=== PATIENT | female | born 1955 | race Caucasian/White ===

== ENCOUNTER 2022-06-24 16:50 | Emergency (ER) | payer MEDICARE, MEDICAID, SELFPAY ==
[2022-06-24 16:52] VITALS: BP 192/118; PULSE 90; RESP 18; TEMP 36.1; O2SAT 96; BMI 28.1
[2022-06-24 17:48] VITALS: BP 169/92; PULSE 87; RESP 16; O2SAT 97
--- NOTE | 2022-06-24 18:14 | EKG12_ITS ---
Test Reason : DYSRHYTHMIA Blood Pressure : / mmHG Vent. Rate : 083 BPM Atrial Rate : 083 BPM P-R Int : 124 ms QRS Dur : 084 ms QT Int : 380 ms P-R-T Axes : 032 063 038 degrees QTc Int : 446 ms Normal sinus rhythm Normal ECG Confirmed by LUCI COLMENARES, SHERMAN ([id number]), offline editor KETURAH THAKKAR ([id number]) on 06/27/2022 1:55:53 PM Referred By: HOLLY Confirmed By:SHERMAN VERMA MD
--- NOTE | 2022-06-24 18:32 | RAD_ITS ---
EXAM: XR CHEST, 1 VIEW CLINICAL INDICATION: cp TECHNIQUE: Frontal view of the chest. This report was created using [employer] report generation technology. COMPARISON: None. FINDINGS: LUNGS AND PLEURAL SPACES: Unremarkable. No consolidation or edema. No pneumothorax. No effusion. HEART: Unremarkable. Cardiac silhouette not enlarged. MEDIASTINUM: Central airways and mediastinal contour are unremarkable. BONES/JOINTS: Unremarkable. SOFT TISSUES: Unremarkable. RAD/Chest 1 View (Portable) IMPRESSION: No radiographic evidence of acute cardiopulmonary disease. Electronically Signed: Umberto Collier MD at 19:10 [facility] ,
[2022-06-24 18:40] LABS: Bacteria 0 SEEN /hpf (None Seen); Mucous, Urine 0 SEEN /hpf (<or=2+); Red Blood Cells-Urine 0 SEEN /hpf (0-5); Squamous Epithelial Cells - UA 0 SEEN /hpf (5-10); White Blood Cells 0 SEEN /hpf (0-5)
[2022-06-24 18:43] LABS: Absolute Lymphocyte Count 2.44 X10^3/uL (0.83-4.51); Absolute Neutrophil Count 8.7 X10^3/uL (2.0-7.7); Basophil# 0.07 X10^3/uL; Basophil% 0.6 % (0-1); Eosinophil# 0.12 X10^3/uL; Hematocrit 42.6 % (37-47); Hemoglobin 13.3 g/dL (12.0-15.0); Lymphocyte # 2.44 X10^3/ul (0.83-4.51); Lymphocyte % 20.3 % (19-41); Mean Corp Hgb Conc 31.2 g/dL (32-36); Mean Corpuscular Volume 86.6 fL (81-99); Mean Platelet Vol. 10.3 fl (6.2-12.0); Monocyte# 0.59 X10^3/uL; Monocyte% 4.9 % (0-10); NRBC Flagged by Analyzer 0 % (0-5); Neutrophil # 8.72 X10^3/uL (2.7-7.7); Neutrophil % 72.5 % (47-70); Platelet Count 580 K/mm3 (150-450); RBC Distribution Width CV 14.9 % (11.6-14.6); RBC Distribution Width SD 47.6 fl (35.1-43.9); Red Blood Count 4.92 M/mm3 (4.2-5.4)
[2022-06-24 18:55] LABS: Color, Urine Yellow (Yellow); Glucose, Dipstick Normal (Normal); Ketone-Dipstick Negative (Negative); Leukocyte Esterase-Dipstick Negative /ul (Negative); Nitrite-Dipstick Negative (Negative); Occult Blood-Urine Negative /ul (Negative); Protein-Dipstick Negative (Negative); Urine Bilirubin Dipstick Negative (Negative); Urine Clarity Clear (Clear); Urine Urobilinogen Normal (Normal)
[2022-06-24 18:59] LABS: Anion Gap 10 (5-15); BUN 5 mg/dL (7-18); BUN/Creat Ratio 5.1 RATIO (10-20); Calcium,Total 8.7 mg/dL (8.5-10.1); Chloride 103 mmol/L (98-107); Creatinine, Serum 0.99 mg/dL (0.55-1.02); EST Glomerular Filtration Rate 59 mL/min (>60); Est Glom Filt Rate - Afr Amer 72 mL/min (>60); Estimated Creatinine Clearance 56.05 ml/min; Glucose 117 mg/dL (74-106); Potassium 3.8 mmol/L (3.5-5.1); Sodium Level 139 mmol/L (136-145)
[2022-06-24 19:03] VITALS: BP 177/102; PULSE 78
[2022-06-24 19:49] VITALS: BP 167/80
--- NOTE | 2022-06-24 21:03 | EDS_ITS ---
HPI History of Present Illness Chief Complaint: Hypertension Informant: patient Onset/Context/Timing Onset: Today Narrative Narrative: Patient presents secondary to hypertension. She states she had a sudden sensati on of feeling very hot today when she was in her daughter's house. Her daughter checked her blood pressure it was noted to be 203/100. Patient is unsure when her last blood pressure reading would have been. She has not seen a physician in the last 4 years. She denies headache, chest pain, shortness of breath. PFSH PFSH no medical history Home Medications diphenhydramine HCl 25 mg capsule (Benadryl) 25 mg PO QHS PRN Sleep 06/24/22 [History Last Taken Unknown] metoprolol succinate 25 mg tablet,extended release 24 hr 25 mg PO DAILY #30 tabs 06/24/22 [Rx Last Taken Unknown] Allergy/AdvReac Type Severity Reaction Status Date / Time Penicillins [PCN] AdvReac Nausea Verified 06/24/22 16:52 Social History Smoking Status: Never smoker ROS ROS ED Constitutional Constitutional ED: Denies chills or fever(s) Eyes Eyes: Denies change in vision or discharge from eye(s) ENT ENT ED: Denies discharge from eye(s), rhinorrhea or sore throat Cardiovascular Cardiovascular: Denies chest pain or palpitations Respiratory/Chest Respiratory/Chest: Denies cough or dyspnea Gastrointestinal Gastrointestinal: Denies abdominal pain, nausea or vomiting Genitourinary Genitourinary ED: Denies difficulty urinating or dysuria Musculoskeletal Musculoskeletal: Denies back pain or extremity pain Integumentary Denies Abrasions or rash Neurologic Neurologic: Denies headache(s) or weakness Psychiatric Psychiatric: Denies anxiety or depression Allergic/Immunologic Allergic/Immunologic ED: Denies lip swelling or urticaria EXAM Physical Exam Const Vital Signs: 06/24/22 16:52 06/24/22 17:48 06/24/22 19:03 Temperature 97 F L Temperature Source Temporal Pulse Rate 90 87 78 Respiratory Rate 18 16 Blood Pressure 192/118 H 169/92 H 177/102 H Blood Pressure Mean 142 117 127 Pulse Ox 96 97 Oxygen Delivery Method Room Air Room Air 06/24/22 19:49 06/24/22 21:37 Temperature Temperature Source Pulse Rate 71 Respiratory Rate 16 Blood Pressure 167/80 H 164/76 H Blood Pressure Mean 109 Pulse Ox 100 Oxygen Delivery Method Positive well nourished and well developed General Appearance ED: well developed HEENT Reports normocephalic and head/scalp atraumatic Eyes PERRL and EOMs intact bilaterally Neck supple Chest Wall inspection of chest normal and palpation of chest normal Resp normal respiratory effort and clear to auscultation bilaterally Cardio regular rate and regular rhythm GI normal to inspection, nondistended, normoactive bowel sounds Palpation: soft Back/Spine no CVA tenderness Extremity normal to inspection Neuro oriented x3 and no sensory deficits noted Sensorium / Orientation: alert Motor Exam: strength 5/5 throughout Psych mental status grossly normal Skin no rashes or lesions noted MDM MDM MDM Narrative Medical decision making narrative: Patient placed on security monitor. EKG obtained to evaluate for signs of hypertensive heart disease. CBC and chemistry studies obtained to evaluate for anemia, electrolyte derangement. Urinalysis obtained to evaluate for any proteinuria. Lab Data Attestation: I reviewed the patient's lab results. Labs: Laboratory Results - last 24 hr 06/24/22 06/24/22 06/24/22 18:36 18:36 18:36 WBC 12.0 H RBC 4.92 Hgb 13.3 Hct 42.6 MCV 86.6 MCH 27.0 MCHC 31.2 L RDW Std Deviation 47.6 H RDW Coeff of Terell 14.9 H Plt Count 580 H MPV 10.3 Immature Gran % (Auto) 0.700 Neut % (Auto) 72.5 H Lymph % (Auto) 20.3 [place] % (Auto) 4.9 Eos % (Auto) 1.0 Baso % (Auto) 0.6 Absolute Neuts (auto) 8.7 H Absolute Lymphs (auto) 2.44 Nucleated RBC % 0 Sodium 139 Potassium 3.8 Chloride 103 Carbon Dioxide 26.0 Anion Gap 10 BUN 5 L Creatinine 0.99 Estim Creat Clear Calc 56.05 Est GFR (MDRD) Af Amer 72 Est GFR (MDRD) Non-Af 59 L BUN/Creatinine Ratio 5.1 L Glucose 117 H Calcium 8.7 Urine Color Yellow Urine Clarity Clear Urine pH 7.0 Ur Specific [place] 1.010 Urine Protein Negative Urine Glucose (UA) Normal Urine Ketones Negative Urine Occult Blood Negative Urine Nitrite Negative Urine Bilirubin Negative Urine Urobilinogen Normal Ur Leukocyte Esterase Negative Urine RBC 0 SEEN Urine WBC 0 SEEN Ur Squamous Epith Cells 0 SEEN Urine Bacteria 0 SEEN Urine Mucus 0 SEEN Radiography Chest X-Ray - ED: 1 View, Read by ED Physician, Normal, Heart, Lungs and Medi astinum Diagnostic Testing: Clinical Impression(s) from Imaging Studies Chest X-Ray 06/24/22 18:32 IMPRESSION: No radiographic evidence of acute cardiopulmonary disease. Electronically Signed: Umberto Collier MD at 19:10 EST , EKG Initial EKG: Attestation: I personally reviewed and interpreted this EKG as follows: Interpretation: Sinus Rhythm (Sinus 83 with no acute ischemia.) Treatment and Re-Evaluation Narrative: Patient was not given anything for blood pressure initially. With observation her blood pressure has settled in the 160s and 170s systolic. CBC and chemistry studies significantly for a white count of 12 and platelet count of 580. Renal function is normal. Urinalysis is normal with no sign of proteinuria. Chest x-ray per my interpretation is unremarkable with no significant evidence of cardiomegaly. EKG reveals no acute ischemia. With patient's blood pressure still in the 160s to 170s I will start her on low- dose metoprolol. She recently got a new insurance card and picked Greta Castanon as her provider. I recommended she call her for an appointment as soon as possible. I did recommend she keep a journal of her blood pressure readings. Return instructions are given. Discharge Plan Triage Chief Complaint: Hypertension ED Provider: Mahsa Moss Dx/Rx/DC Orders Clinical Impression: Hypertension Instructions: ED Hypertension New Begin Treatment Prescriptions: New metoprolol succinate 25 mg tablet extended release 24 hr 25 mg PO DAILY Qty: 30 0RF No Action diphenhydramine HCl [Benadryl] 25 mg Capsule 25 mg PO QHS PRN (Reason: Sleep) Primary Care Provider: Care Physician,No Primary Referrals: Care Physician,No Primary [Primary Care Provider] - Activity Restrictions/Additional Instructions: Follow-up with Greta Castanon NP. Please keep a journal of your blood pressure readings. Disposition Disposition: Home, Self Care Discharge Date/Time: 06/24/22 21:37
[2022-06-24] MEDS: Metoprolol(XL)Succ 25 MG Tablet PO (21:33)
[2022-06-24 21:37] VITALS: BP 164/76; PULSE 71; RESP 16; O2SAT 100
== END 2022-06-24 21:37 | disposition home or self-care (01) ==
PROVIDERS: Emergency Provider Emergency Medicine; Visit Provider Emergency Medicine
DX: I10 Essential (primary) hypertension (principal)
CPT/HCPCS: 71045; 80048; 81001; 85025; 93005; 99285; A4216

== ENCOUNTER → 2022-07-08 | Outpatient (CLI) | payer MEDICARE, MEDICAID, SELFPAY ==
[2022-07-08 13:00] LABS: Absolute Lymphocyte Count 2.65 X10^3/uL (0.83-4.51); Absolute Neutrophil Count 3.7 X10^3/uL (2.0-7.7); Basophil# 0.04 X10^3/uL; Basophil% 0.6 % (0-1); Eosinophil# 0.12 X10^3/uL; Eosinophils% 1.7 % (0-5); Hematocrit 42.1 % (37-47); Hemoglobin 12.9 g/dL (12.0-15.0); Lymphocyte # 2.65 X10^3/ul (0.83-4.51); Lymphocyte % 37.3 % (19-41); Mean Corp Hgb Conc 30.6 g/dL (32-36); Mean Corpuscular Hgb 26.5 pg (27.0-32.0); Mean Corpuscular Volume 86.6 fL (81-99); Mean Platelet Vol. 12.2 fl (6.2-12.0); Monocyte# 0.57 X10^3/uL; NRBC Flagged by Analyzer 0 % (0-5); Neutrophil % 52.1 % (47-70); Platelet Count 543 K/mm3 (150-450); RBC Distribution Width CV 14.8 % (11.6-14.6); RBC Distribution Width SD 47.4 fl (35.1-43.9); Red Blood Count 4.86 M/mm3 (4.2-5.4); White Blood Count 7.1 K/mm3 (4.4-11.0)
[2022-07-08 13:38] LABS: Alanine Aminotransfer ALT/SGPT 25 U/L (13-56); Anion Gap 9 (5-15); BUN 8 mg/dL (7-18); BUN/Creat Ratio 10.4 RATIO (10-20); Calcium,Total 9.1 mg/dL (8.5-10.1); Chloride 101 mmol/L (98-107); Creatinine, Serum 0.77 mg/dL (0.55-1.02); EST Glomerular Filtration Rate 79 mL/min (>60); Est Glom Filt Rate - Afr Amer 96 mL/min (>60); Glucose 102 mg/dL (74-106); Potassium 3.9 mmol/L (3.5-5.1); Sodium Level 139 mmol/L (136-145); Thyroid Stim Hormone (TSH) 1.55 uIU/mL (0.358-3.74)
== END | disposition home or self-care (01) ==
LOC: LAB 11:32
DX: I10 Essential (primary) hypertension (principal); R63.5 Abnormal weight gain
CPT/HCPCS: 36415; 80048; 84443; 84460; 85025

== ENCOUNTER → 2022-11-18 | Outpatient (CLI) | payer MEDICARE, MEDICAID, SELFPAY ==
[2022-11-18 10:15] LABS: Absolute Lymphocyte Count 2.32 X10^3/uL (0.83-4.51); Absolute Neutrophil Count 3.8 X10^3/uL (2.0-7.7); Basophil# 0.06 X10^3/uL; Basophil% 0.9 % (0-1); Eosinophil# 0.12 X10^3/uL; Eosinophils% 1.7 % (0-5); Hematocrit 41.4 % (37-47); Hemoglobin 12.9 g/dL (12.0-15.0); Lymphocyte # 2.32 X10^3/ul (0.83-4.51); Lymphocyte % 33.4 % (19-41); Mean Corp Hgb Conc 31.2 g/dL (32-36); Mean Corpuscular Hgb 26.7 pg (27.0-32.0); Mean Corpuscular Volume 85.7 fL (81-99); Mean Platelet Vol. 9.8 fl (6.2-12.0); Monocyte% 8.6 % (0-10); NRBC Flagged by Analyzer 0 % (0-5); Neutrophil # 3.81 X10^3/uL (2.7-7.7); Neutrophil % 54.8 % (47-70); Platelet Count 537 K/mm3 (150-450); RBC Distribution Width CV 14.5 % (11.6-14.6); Red Blood Count 4.83 M/mm3 (4.2-5.4)
[2022-11-18 10:48] LABS: Anion Gap 5 (5-15); BUN 7 mg/dL (7-18); BUN/Creat Ratio 7.9 RATIO (10-20); Calcium,Total 8.8 mg/dL (8.5-10.1); Chloride 103 mmol/L (98-107); Cholesterol 264 mg/dL (200); Creatinine, Serum 0.89 mg/dL (0.55-1.02); EST Glomerular Filtration Rate 67 mL/min (>60); Est Glom Filt Rate - Afr Amer 81 mL/min (>60); Glucose 108 mg/dL (74-106); High Density Lipoprotein 52 mg/dL; Potassium 4.1 mmol/L (3.5-5.1); Sodium Level 137 mmol/L (136-145); Triglycerides 199 mg/dL; Very Low Density Lipoprotein 40 mg/dL (5-40)
== END | disposition home or self-care (01) ==
LOC: LAB 09:40
DX: I10 Essential (primary) hypertension (principal)
CPT/HCPCS: 36415; 80048; 80061; 85025

== ENCOUNTER → 2023-06-16 | Outpatient (CLI) | payer MEDICARE, MEDICAID, SELFPAY ==
--- NOTE | 2023-06-16 13:47 | BI_ITS ---
MAMMOGRAPHY - BILATERAL SCREENING REASON FOR EXAM: Female, 68 years old. Routine annual screening examination. PERTINENT HISTORY: Aunt with breast cancer. TECHNIQUE: Digital bilateral breast pamela (3D mammographic acquisition) in the CC and MLO projections. 2-D mediolateral oblique (MLO) and craniocaudad (CC) views of both breasts were obtained. CAD: Full Field Digital Mammography with Computer Added Detection was performed. COMPARISON: No comparison mammograms available at this time. If any prior films become available, an addendum to this report can be generated. FINDINGS: Breast Composition: There are scattered areas of fibroglandular density. There are 3 adjacent well-defined subcentimeter nodular densities in the deep central lateral aspect of the right breast. Correlation with ultrasound is recommended. Fat-containing bilateral axillary lymph nodes. No other significant abnormalities are identified. BI/SCRN MAMM (CAD)W/PAMELA BILAT IMPRESSION: 3 adjacent well-defined subcentimeter nodular densities in the deep central lateral aspect of the right breast. Correlation with ultrasound is recommended for further evaluation. ASSESSMENT CATEGORY: BIRADS Category 0: Incomplete. Need additional imaging evaluation. A letter regarding these results will be sent to the patient by the facility within 30 days. Approximately 10% of breast cancers are not detected by mammography. A normal mammogram should not delay biopsy of a clinically suspicious abnormality. [id number] Electronically Signed: Franco Corcoran MD at 14:36 EST ,
== END | disposition home or self-care (01) ==
LOC: OPBI 13:44
PROVIDERS: Referring Provider Nurse Practitioner Family; Visit Provider Nurse Practitioner Family
DX: Z12.31 Encounter for screening mammogram for malignant neoplasm of breast (principal)
CPT/HCPCS: 77063; 77067

== ENCOUNTER → 2023-06-27 | Outpatient (CLI) | payer MEDICARE, MEDICAID, SELFPAY ==
--- NOTE | 2023-06-27 10:49 | US_ITS ---
STUDY: ULTRASOUND BREAST - RIGHT REASON FOR EXAM: Female, 68 years old. Abnormal screening mammogram. TECHNIQUE: Axial and longitudinal images of the RIGHT breast were performed with a high resolution ultrasound transducer. # OF IMAGES: 21 COMPARISON: Comparison is made with prior mammogram dated June 16, 2023. FINDINGS: RIGHT Breast: At the 8:00 position of the breast at 7 cm and 9 cm from the nipple, there are 2 adjacent 4 mm x 5 mm x 4 mm and 6 mm x 5 mm x 3 mm hypoechoic irregular nodular densities with increased vascularity. Biopsy is recommended. There is also evidence of a 5 mm x 5 mm x 4 mm hypoechoic solid nodule with smooth borders at the 8:00 position of the breast at 7 cm from the nipple. US/Breast Limited Unilateral IMPRESSION: There are 3 adjacent hypoechoic solid nodules in the 8 o''clock position of the breast at 7, 89, cm from nipple as described. Biopsy recommended of the spiculated nodules at the 8:00 position at 7 cm from nipple and 8:00 position at 9 cm from nipple. ASSESSMENT CATEGORY: BIRADS Category 4: Suspicious - Biopsy Should Be Considered. A letter regarding these results will be sent to the patient by the facility within 30 days. Electronically Signed: Franco Corcoran MD at 14:46 EST ,
== END | disposition home or self-care (01) ==
LOC: OPUS 10:48
PROVIDERS: Referring Provider Nurse Practitioner Family; Visit Provider Nurse Practitioner Family
DX: N63.13 Unspecified lump in the right breast, lower outer quadrant (principal)
CPT/HCPCS: 76642

== ENCOUNTER → 2023-11-24 | Outpatient (CLI) | payer MEDICARE, MEDICAID, SELFPAY ==
[2023-11-24 08:36] LABS: Absolute Lymphocyte Count 2.67 X10^3/uL (0.83-4.51); Absolute Neutrophil Count 5.2 X10^3/uL (2.0-7.7); Basophil# 0.06 X10^3/uL; Basophil% 0.7 % (0-1); Eosinophils% 1.1 % (0-5); Hematocrit 39.5 % (37-47); Hemoglobin 12.3 g/dL (12.0-15.0); Lymphocyte # 2.67 X10^3/ul (0.83-4.51); Lymphocyte % 30.2 % (19-41); Mean Corp Hgb Conc 31.1 g/dL (32-36); Mean Corpuscular Hgb 26.2 pg (27.0-32.0); Mean Corpuscular Volume 84.2 fL (81-99); Mean Platelet Vol. 9.9 fl (6.2-12.0); Monocyte# 0.75 X10^3/uL; Monocyte% 8.5 % (0-10); NRBC Flagged by Analyzer 0 % (0-5); Neutrophil # 5.21 X10^3/uL (2.7-7.7); Neutrophil % 58.9 % (47-70); Platelet Count 557 K/mm3 (150-450); RBC Distribution Width CV 14.6 % (11.6-14.6); RBC Distribution Width SD 44.5 fl (35.1-43.9); Red Blood Count 4.69 M/mm3 (4.2-5.4); White Blood Count 8.8 K/mm3 (4.4-11.0)
[2023-11-24 08:59] LABS: ALB/GLOB Ratio 0.9 RATIO (0.9-2.4); AST(SGOT) 22 U/L (15-37); Alanine Aminotransfer ALT/SGPT 31 U/L (13-56); Albumin, Serum 3.7 g/dL (3.2-5.0); Alkaline Phosphatase 131 U/L (45-117); Anion Gap 6 (5-15); BUN 7 mg/dL (7-18); BUN/Creat Ratio 8.7 RATIO (10-20); Calcium,Total 8.3 mg/dL (8.5-10.1); Chloride 102 mmol/L (98-107); Cholesterol 286 mg/dL (200); Creatinine, Serum 0.81 mg/dL (0.55-1.02); EST Glomerular Filtration Rate 75 mL/min (>60); Est Glom Filt Rate - Afr Amer 90 mL/min (>60); Glucose 125 mg/dL (74-106); High Density Lipoprotein 64 mg/dL; Potassium 3.9 mmol/L (3.5-5.1); Protein, Total 7.7 g/dL (6.4-8.2); Sodium Level 138 mmol/L (136-145); Thyroid Stim Hormone (TSH) 3.38 uIU/mL (0.358-3.74); Triglycerides 180 mg/dL; Very Low Density Lipoprotein 36 mg/dL (5-40)
== END | disposition home or self-care (01) ==
LOC: LAB 08:15
PROVIDERS: Referring Provider Nurse Practitioner Family; Visit Provider Nurse Practitioner Family
DX: I10 Essential (primary) hypertension (principal); E78.5 Hyperlipidemia, unspecified; E56.9 Vitamin deficiency, unspecified
CPT/HCPCS: 36415; 80053; 80061; 84443; 85025

== ENCOUNTER → 2024-01-10 | Outpatient (CLI) | payer MEDICARE, MEDICAID, SELFPAY ==
--- NOTE | 2024-01-10 11:43 | US_ITS ---
STUDY: THYROID ULTRASOUND REASON FOR EXAM: Female, 68 years old. Nontoxic single thyroid nodule TECHNIQUE: Ultrasound evaluation of the thyroid was performed with real-time and static horvath-scale imaging. COMPARISON: None. FINDINGS: RIGHT LOBE: The right lobe of the thyroid gland measures 4.1 cm x 2.5 cm x 3 cm. There is a heterogeneous echotexture. There is a 3.5 cm x 2.9 cm x 2.9 cm heterogeneous nodule with vascularity. Biopsy recommended. LEFT LOBE: The left lobe of the thyroid gland measures 4.8 cm x 3 cm x 3.4 cm. There is a homogeneous echotexture. There is a 3.1 sided by 2.9 cm x 2.8 cm hypoechoic solid nodule in the midpole. Increased vascularity is seen. A similar appearing 1.5 cm x 1.4 cm x 1.2 cm complex nodule seen in the lower pole with increased vascularity. Biopsy recommended. ISTHMUS: The isthmus measures 1.7 mm. The regional lymph nodes are normal. US/Thyroid IMPRESSION: Complex masses in both lobes of the thyroid gland as described. Biopsy is recommended. Electronically Signed: Franco Corcoran MD at 9:04 EDT ,
== END | disposition home or self-care (01) ==
LOC: US 11:43
PROVIDERS: PCP Internal Medicine; Referring Provider Internal Medicine; Visit Provider Internal Medicine
DX: E04.1 Nontoxic single thyroid nodule (principal)
CPT/HCPCS: 76536

== ENCOUNTER → 2024-01-12 | Outpatient (CLI) | payer MEDICARE, MEDICAID, SELFPAY ==
--- NOTE | 2024-01-12 | IMM_PTH ---
PATIENT: DAYSI YOUNG LOC: [facility]#:[id number] AGE/SX: 68/F ROOM: RE01/12/[address]: Nati Mendoza PA-C : 1955 BED: DIS: 01/12/2024 SPEC #: [id number] RECD: 01/15/24 11:54 STATUS: MARIANNE REQ #: [id number] MARY: 01/12/24 00:[address]: Nati Mendoza DEPT: IMMUNOHISTOCHEMISTRY RECD BY: Drake Geller ENTERED: 01/15/24 11:56 SP TYPE: IMMUNO OTHR DR: Dr. Rashid Walsh MD Tissues: A - Right breast, NOS B - Right breast, NOS Procedures: CK8 (initial) SMA (add) Calponin-1(initial) CALPONIN-1 (add) P40 (add) P40 (initial) PHYSICIAN & INSTITUTION [place] [id number] SPECIMEN INFORMATION: Tissue Source: A- Right breast, B- Right breast Clinical Info: Right breast, multiple sites Specimen Number: [id number] A, B CPT code: 71703m5,69144t5 METHODOLOGY: Deparaffinized sections of prefer/formalin-fixed tissue or PAP/DQ stained slides are incubated with monoclonal/polyclonal antibodies/oligonucleotide probes. Localization is made via biotin free immunoperoxidase method. Appropriate controls are performed and reacted as expected. Results on target cell population are indicated in the following table: RESULTS: ANTIBODY / CLONE RESULT Block A Actin (1A4) positive P40 (BC28) positive Calponin-1 (RM476V) positive CK8 ([id number]) positive Block B Actin (1A4) positive P40 (BC28) positive Calponin-1 (EA099V) positive CK8 ([id number]) positive These tests were developed and their performance characteristics determined by [facility]. They may not have been cleared or approved by the U.S. Food and Drug Administration. The FDA has determined that such clearance or approval is not necessary. The above immunohistochemical/dualISH markers are ordered and reviewed by the Pathologist. INTERPRETATION: A. Right breast, ultrasound guided core biopsy: Consistent with intraductal papilloma. B. Right breast, ultrasound guided core biopsy: Consistent with intraductal papilloma. EMBER/ 01/16/2024
--- NOTE | 2024-01-12 | BRBX_PTH ---
PATIENT: DAYSI YOUNG LOC: [facility]#:[id number] AGE/SX: 68/F ROOM: RE01/12/[address]: Nati Mendoza PA-C : 1955 BED: DIS: 01/12/2024 SPEC #: [id number] RECD: 01/12/24 10:03 STATUS: MARIANNE GABI #: [id number] MARY: 01/12/24 00:[address]: Nati Mendoza DEPT: SURGICAL PATHOLOGY RECD BY: Kirill Gtz ENTERED: 01/12/24 10:04 SP TYPE: BREAST BX MARGARITA DR: Dr. Rashid Walsh MD Tissues: A - Right breast, NOS B - Right breast, NOS Procedures: Surgery Specimen Level IV HEADER OPERATION: Ultrasound guided breast biopsy, right PRE-OP DIAGNOSIS: Right breast, multiple sites TISSUE SUBMITTED: A- Right breast mass 8 o'clock, 9cm, B- Right breast mass 8 o'clock, 7cm ISCHEMIC TIME: Less than 1 minute FIXATION TIME: 58 hours MICROSCOPIC DIAGNOSIS A. Right breast mass at 8o'clock, core biopsy: Consistent with intraductal papilloma. Mild fibrocystic changes. Focal intraductal hyperplasia without atypia. See comment. B. Right breast at 8o'clock, core biopsy: Fragments of intraductal papilloma. Focal intraductal hyperplasia with focal mild atypia. Fibrocystic change. See comment. EMBER/ 01/15/2024 COMMENT A,B. Immunohistochemistry ([id number]) supports the above diagnosis. Case has been reviewed in consultation with Dr. Sotelo who concurs with the above diagnosis. IDC:SJ MICROSCOPIC DESCRIPTION Slides are reviewed. GROSS DESCRIPTION A. Received in fixative is one container labeled with the patient's name and designated Right breast #1. The specimen consists of multiple elongated fragments of cohn-yellow fibroadipose tissue that in aggregate measure 1.5 x 0.5 x 0.1 cm. The specimen is totally submitted in one cassette. B. Received in fixative is one container labeled with the patient's name and designated Right breast #2. The specimen consists of multiple irregular fragments of light-cohn soft tissue measuring in aggregate 2.0 x 0.6 x 0.3cm. The specimen is submitted in its entirety in one cassette/ SJ. 01/15/2024 TC:5 CPT:15917p2
--- NOTE | 2024-01-12 07:55 | US_ITS ---
ULTRASOUND GUIDED CORE BIOPSY REASON FOR EXAM: Female, 68 years old. Mass right breast PERTINENT HISTORY: Biopsy of right breast nodules. COMPARISON: None. TECHNIQUE: (All elements of maximal sterile barrier technique followed, including US elements as applicable) Upon arrival to the breast imaging department the patient''s identification was confirmed and the RIGHT breast was marked according to time-out protocol. Ultrasound guided core biopsy and clip placement, to include potential risks and complications, was explained in full to the patient. Written and verbal consent were obtained prior to initiation of the procedure. The RIGHT breast was prepped and draped in standard sterile fashion and local anesthesia was obtained with 1% buffered lidocaine. A small dermatotomy was then made to introduce the core biopsy needle. Under ultrasound guidance multiple core samples were obtained with a gauge needle and submitted in formalin for pathology. A titanium clip was then deployed into the biopsy cavity under ultrasound guidance. Upon completion of the procedure hemostasis was obtained and sterile dressing was applied. The patient tolerated the entire procedure without immediate complication and was discharged from the breast imaging department in good condition. IMPRESSION: Ultrasound guided core biopsy of a mass in the RIGHT breast at 8:00 position of the breast at 9 cm from the nipple without complication. Electronically Signed: Franco Corcoran MD at 12:26 EDT , ULTRASOUND GUIDED CORE BIOPSY REASON FOR EXAM: Female, 68 years old. Mass right breast PERTINENT HISTORY: Abnormal right breast nodules. COMPARISON: None. TECHNIQUE: (All elements of maximal sterile barrier technique followed, including US elements as applicable) Upon arrival to the breast imaging department the patient''s identification was confirmed and the RIGHT breast was marked according to time-out protocol. Ultrasound guided core biopsy and clip placement, to include potential risks and complications, was explained in full to the patient. Written and verbal consent were obtained prior to initiation of the procedure. The RIGHT breast was prepped and draped in standard sterile fashion and local anesthesia was obtained with 1% buffered lidocaine. A small dermatotomy was then made to introduce the core biopsy needle. Under ultrasound guidance multiple core samples were obtained with a 11 gauge needle and submitted in formalin for pathology. A titanium clip was then deployed into the biopsy cavity under ultrasound guidance. Upon completion of the procedure hemostasis was obtained and sterile dressing was applied. The patient tolerated the entire procedure without immediate complication and was discharged from the breast imaging department in good condition. US/US Breast Biopsy 1st Lesion IMPRESSION: Ultrasound guided core biopsy of a mass in the RIGHT breast at 8:00 position of the breast at 7 cm from the nipple without complication. Electronically Signed: Franco Corcoran MD at 12:26 EDT ,
--- NOTE | 2024-01-12 11:14 | OP.PCM_ITS ---
Report of Operation Date of Procedure: 01/12/24 Pre-Operative Diagnosis: Right breast mass x 2 Post-Operative Diagnosis: Same Surgery/Procedure Performed:: Ultrasound guided right breast biopsy x 2 Surgeon: Salima Rosado Type of Anesthesia: Local Specimen's removed: 1. Right breast mass 8:00 9 cm from nipple, 2. Right breast mass 8:00 7 cm from the nipple Estimated Blood Loss (mL): < 5 cc Description of Procedure: Reviewed the ultrasound and mammography with patient and discussed the need for biopsy. Reviewed the procedure of biopsy with a core biopsy device. A marker clip will be placed to identify the location. Patient has been counseled to the risks/benefits of the procedure. I have explained the risks of the surgery, including but not limited to: infection, bleeding, injury to any blood vessels/nerves, scar tissue, missing the lesion, further surgery, etc. - the patient understands and agrees to proceed. I have answered all of the patient's questions to her satisfaction and she has no further questions. Signed consent is completed. Procedure: Right ultrasound-guided core biopsy x 2 Indications: 68 year-old female with hypoechoic nodules at 8:00 in the right breast 7 (2 adjacent nodules) and 9 centimeters from the nipple. Risk benefits were discussed the patient and she elected to proceed with ultrasound guided core biopsy with clip placement Description of procedure: Patient was brought into the ultrasound room in the right breast was marked. A timeout was completed verifying correct patient, procedure, site, specially, prior to beginning procedure. The right breast was prepped and draped in usual sterile fashion and using local anesthesia was obtained with 1% lidocaine with epi. Both lesions were done similarly through the same initial incision. The lesion was located with the ultrasound. Small incision was made with 11 blade to introduced the mammotome through the skin. Under ultrasound guidance multiple core samples were obtained using then 13- gauge mammotome and sent in formalin for pathology. Both lesions were obtained at the 7:00 area and sent together. The Bard dual ultra-(ribbon clip at 9:00 and clip at 7:00) clip was then deployed into the biopsy cavity under ultrasound guidance and a picture was taken. Upon completion procedure hemostasis was obtained and a Steri-Strip and OpSite were placed. Patient was then taken to the mammography suite for clip verification. The clip was verified. The patient tolerated the procedure well and was discharged from the breast imaging department good condition. Complications none
== END | disposition home or self-care (01) ==
LOC: US 07:53
PROVIDERS: PCP Internal Medicine; Referring Provider Physician Assistant; Visit Provider Physician Assistant
DX: D24.1 Benign neoplasm of right breast (principal); N60.11 Diffuse cystic mastopathy of right breast; N62 Hypertrophy of breast; R92.8 Other abnormal and inconclusive findings on diagnostic imaging of breast
CPT/HCPCS: 19083; 19084; 88305; 88341; 88342

== ENCOUNTER 2024-02-28 11:50 | Day surgery (SDC) | payer MEDICARE, MEDICAID, SELFPAY ==
[2024-02-28] VITALS (10 sets, daily range): BP systolic 129–157; BP diastolic 67–81; PULSE 62–79; RESP 16–17; TEMP 36.3–36.8; O2SAT 93–100; BMI 26.8
--- NOTE | 2024-02-28 | IMM_PTH ---
PATHOLOGY RESULTS PATIENT: DAYSI YOUNG [place] [facility] [id number] AGE/SX: 68/F ROOM: RE02/28/[address]: Dr. Salima Rosado MD : [id number] BED: DIS: 02/28/2024 SPEC #: [id number] RECD: 03/04/24 11:49 STATUS: MARIANNE REQ #: [id number] MARY: 02/28/24 00:[address]: Salima Rosado DEPT: IMMUNOHISTOCHEMISTRY RECD BY: Drake Geller ENTERED: 03/04/24 11:51 SP TYPE: IMMUNO OTHR DR: Dr. Rashid Walsh MD Tissues: Right breast, NOS Procedures: CALPONIN-1 (add) CK8 (add) E-CAD (add) HER2 NANY (add) OH (add) P40 (add) ER (initial) PHYSICIAN & INSTITUTION [facility] [id number] SPECIMEN INFORMATION: Tissue Source: Right breast mass Clinical Info: Atypical ductal hyperplasia of right breast Specimen Number: [id number] CPT code: 30585,[id number] METHODOLOGY: Deparaffinized sections of prefer/formalin-fixed tissue or PAP/DQ stained slides are incubated with monoclonal/polyclonal antibodies/oligonucleotide probes. Localization is made via biotin free immunoperoxidase method. Appropriate controls are performed and reacted as expected. Results on target cell population are indicated in the following table: RESULTS: ANTIBODY / CLONE RESULT Block #6 E-Cad (ECH-6) positive CK8 ([id number]) positive Calponin-1 (CE797N) positive (myoepithelial cells) P40 (BC28) positive (myoepithelial cells) MORPHOMETRIC ANALYSIS ER (clone 6F11) positive (variable, 0 to 22%, moderate intensity) OH (clone 16/1E2) positive (variable, 0 to 17%, moderate intensity) Her-2Neu (clone CB11) positive (3+) The prognostic test for HER2 is performed on formalin-fixed paraffin embedded tissue. A 3+ (positive) staining pattern is defined as intense, homogeneous, complete, circumferential membranous staining in >10% of contiguous tumor cells. A similar weak (2+) staining pattern is interpreted as equivocal. ALDO follow-up testing is recommended for all equivocal cases. Positivity/negativity for ER/OH is reported if > or < 1% of the tumor cells are immuno- reactive, respectively. The ASCO/CAP criteria is used for scoring. Reference: Journal of Clinical Oncology, 2013; 31:4274-3582 & 2010; 16:8812-2716. Ischemic time: Less than one hour. Duration of fixation: 29 Hrs; Sample Adequate: Yes. These assays have not been validated on decalcified tissues. Results should be interpreted with caution given the likelihood of false negativity on decalcified specimens or fixation greater than 72 hours. Alternative testing methods (FISH/dualISH for Her2; gene expression for ER) are recommended, if applicable. Please notify the laboratory if additional testing is required. These tests were developed and their performance characteristics determined by [facility]. They may not have been cleared or approved by the U.[place]. Food and Drug Administration. The FDA has determined that such clearance or approval is not necessary. The above immunohistochemical/dualISH markers are ordered and reviewed by the Pathologist. INTERPRETATION: Right breast mass, excisional biopsy: Ductal carcinoma in situ. DEIDRA/ 03/05/2024
--- NOTE | 2024-02-28 12:24 | PCM.PRE.AN2 ---
ASA Classification* ASA Classification ASA Classification: 2 Assessment & Plan Anesthesia* Anesthesia Assessment Anesthesia Assessment: Discussed sedation and/or anesthesia options, risks, benefits, and alternatives with patient/parents/legal guardian/POA. Questions invited. The patient/parents/legal guardian/POA seems to understand and agrees to proceed with anesthesia plan. Reviewed the physical assessment, medical history, allergy history and patient home medications list prior to surgery/procedure/anesthetic and documented any changes. Performed airway and anesthesia risk assessments. Anesthesia Type Anesthesia Type: MAC History Source History Obtained from:: Patient and Chart Anesthesia Focused Assessment* Temperature: 98.1 F Pulse Rate: 79 Blood Pressure: 157/81 Respiratory Rate: 17 Pulse Ox: 100 Oxygen Delivery Method: Room Air Airway Assessment Mouth opens: >3 cm Mallampati Score: II Teeth Condition: Dentures (Upper and lower dentures. Lower dentures are out.) Neck Range of motion (ROM): Full ROM Pertinent Findings EKG Pertinent Findings:: June 24, 2022. Normal sinus rhythm. Focused Labs Anesthesia Preop lab: CBC WBC 8.8 K/mm3 (4.4-11.0) 11/24/23 08:16 RBC 4.69 M/mm3 (4.2-5.4) 11/24/23 08:16 Hgb 12.3 g/dL (12.0-15.0) 11/24/23 08:16 Hct 39.5 % (37-47) 11/24/23 08:16 Plt Count 557 K/mm3 (150-450) H 11/24/23 08:16 CHEMISTRY Potassium 3.9 mmol/L (3.5-5.1) 11/24/23 08:16 Sodium 138 mmol/L (136-145) 11/24/23 08:16 BUN 7 mg/dL (7-18) 11/24/23 08:16 Creatinine 0.81 mg/dL (0.55-1.02) 11/24/23 08:16 Glucose 125 mg/dL (74-106) H 11/24/23 08:16 TSH 3.38 uIU/mL (0.358-3.74) 11/24/23 08:16 COAG Pre-Assessment Diagnosis/Proposed Procedure Planned Operative Procedure(s): RIGHT STERO WIRE LOCALIZATION EXCISIONAL BREAST BIOPSY Anesthesia History 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 When Was Last Pacemaker Check QUESTION #4 FULL TEXT: You/Your Family Experience fever (hyperthermia) with Anesthesia Last Oral Intake Last Oral intake: Last Oral Intake NPO since 07:30 02/28/24 12:15 Meds taken in AM with sips of Yes 02/28/24 12:15 water? Meds patient instructed to AMLODIPINE 02/28/24 12:15 take am of surgery Any additional information?: Yes Meds taken in AM with sips of water?: Yes PONV PONV - resin coater: PONV - resin coater Female Yes 02/21/24 15:13 HX of Motion Sickness No 02/21/24 15:13 HX of N/V After Surgery No 02/21/24 15:13 Non-Smoker Yes 02/21/24 15:13 Duration of Surgery greater Yes 02/21/24 15:13 than 60 minutes Number of Risk Factors 3 02/21/24 15:13 PONV Score Moderate Risk 02/21/24 15:13 Height & Weight Height & Weight: Anesthesia: Height & Weight Height 5 ft 8 in 02/28/24 12:15 Weight: 80 kg 02/28/24 12:15 Body Mass Index (BMI) 26.8 02/28/24 12:15 Respiratory Assessment Respiratory Assessment - resin coater: Respiratory Tract Infection Hx - resin coater Hx Respiratory Tract Infection No 02/21/24 15:13 STOP Sleep Apnea STOP Sleep Apnea - resin coater: STOP Sleep Apnea - resin coater Hx Hypertension Yes: CONTROLLED WITH MEDS 02/21/24 15:13 Hx Sleep Apnea No 02/21/24 15:13 CPAP BIPAP Do you snore loudly (louder Yes 02/21/24 15:13 than talking or can be heard Do you often feel tired/ No 02/21/24 15:13 fatigued/ sleepy during daytime? Has anyone observed you stop No 02/21/24 15:13 breathing during sleep? STOP Results Positive 02/21/24 15:13 QUESTION #5 FULL TEXT : Do you snore loudly (louder than talking or can be heard through closed doors)? 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 Specify any problems Hx of Preganancy in last 3 No 02/21/24 15:13 Months Nurse Filling Out Transfusion DSCHRIBER 02/21/24 15:13 & Questions: Date: 02/21/24 02/21/24 15:13 Time: 15:14 02/21/24 15:13 Patient unable to answer at this time (ie. confused, unrespo /Reproduction History /Reproductive History - resin coater: /Reproductive Hx- resin coater Hx Now No 02/21/24 15:13 Gestational Age (in weeks): EDC: Hx Hx Para Hx Section SAB No 02/21/24 15:13 Active Medications Active Medications: Current Medications Generic Name Dose Route Start Last Admin Trade Name Freq PRN Reason Stop Dose Admin Clindamycin Phosphate 900 mg in 50 mls @ 75 mls/hr 02/28/24 13:30 Cleocin IV 02/28/24 14:09 PREOP ONE PFSH Medical History Wears glasses Wears dentures Post-menopausal Thyroid disease Arthritis History of renal disease Anemia Injury of back Non-smoker History of pain when walking Hypertension Cardiology follow-up encounter History of rheumatic fever History of basal cell carcinoma of skin Anxiety GERD (gastroesophageal reflux disease) Cardiac murmur Osteoarthritis Fibrocystic breast Home Medications ?Medication ?Instructions ?Recorded ?Last Taken ?Type diphenhydramine HCl 25 mg capsule 25 mg PO QHS PRN Sleep 06/24/22 Unknown History (Benadryl) amlodipine 5 mg tablet 5 mg PO DAILY 06/29/23 02/28/24 History metoprolol succinate 25 mg 25 mg PO QHS 02/21/24 02/27/24 History tablet,extended release 24 hr tramadol 50 mg tablet 50 mg PO Q6H PRN pain #5 tabs 02/28/24 Unknown Rx Allergy/AdvReac Type Severity Reaction Status Date / Time Penicillins (PCN) AdvReac Nausea Verified 02/28/24 11:55 Family History Father Heart disease Mother Heart disease CVA (cerebral vascular accident) Surgical History S/P thyroid biopsy History of thyroid surgery History of esophagogastroduodenoscopy (EGD) History of colonoscopy History of dilatation and curettage History of oral surgery History of partial hysterectomy History of cataract extraction Social History Smoking Status: Never smoker alcohol intake: never substance use type: does not use Review of Systems (Anesthesia) ROS Narrative System reviewed and no additional complaints, except as documented.
--- OUTSIDE RECORDS SUMMARY | 2024-02-28 12:52 | XMS RPT_ITS | CCD ---
Author Organization [facility] Care Team Providers Care Pole Inspector Name Role Phone XAVI LIANG Unavailable Unavailable XAVI LIANG Unavailable Unavailable XAVI LIANG Referring Unavailable XAVI LIANG Primary Care Unavailable Unavailable Primary Care Provider Unavailabl e EDWIN WHEELER Attending Unavailable EDWIN WHEELER Attending Unavailable Medications Current Medications Medication Drug Class(es) Dates Sig (Normalized) Sig (Original) amLODIPine 5 mg oral tablet (2 sources) Dihydropyridine Calcium Channel Virgilio Start: 11-24-2022 take 1 tablet by mouth once daily in the morning amLODIPine (Norvasc) 5 mg tablet Take 1 tablet (5 mg) by mouth once daily in the morning. For Blood Pressure 0 11/24/2022 Active 24 hr metoprolol succinate 25 mg extended release oral tablet (2 sources) beta-Adrenergic Virgilio Start: 01-23-2023 take 1 tablet by mouth once daily metoprolol succinate XL (Toprol-XL) 25 mg 24 hr tablet Take 1 tablet (25 mg) by mouth once daily. 0 01/23/2023 Active Problems Problem Classification Problem Date Documented Da te Episodic/Chronic Other bone disease and musculoskeletal deformities (1 source) Other specified disorders of bone density and structure, multiple sites; Translations: [Other specified disorders of bone density and structure, multiple sites] Onset: 10-20-2017 Episodic Other non-epithelial cancer of skin (4 sources) Basal cell carcinoma of forehead; Translations: [Basal cell carcinoma of skin of other parts of face] Onset: 03-16-2023 03-03-2023 Episodic Results Test Name Value Interpretation Reference Range Facility [facility] surgery 03-16-2023 Consent obtained: written [place] Protocol: Procedure explained and questions answered to patient or proxy's satisfaction: Yes Test results available and properly labeled: Yes Pathology report reviewed: Yes External notes reviewed: Yes Photo or diagram used for site identification: Yes Site/side marked: Yes Slide independently reviewed by Mohs surgeon: Yes Immediately prior to procedure a time out was called: Yes Patient identity confirmed: verbally with patient Preparation: Patient was prepped and draped in usual sterile fashion Anticoagulation: Is the patient taking prescription anticoagulant and/or aspirin prescribed/recommend ed by a physician? No Was the anticoagulation regimen changed prior to Mohs? No Anesthesia: Anesthesia method: local infiltration Local anesthetic: lidocaine 2% WITH epi Procedure Details: Biopsy accession number: OUTSIDE PATH Date of biopsy: 01/24/2023 Pre-Op diagnosis: basal cell carcinoma BCC subtype: nodular Surgery side: left Surgical site (from skin exam): left midline upper forehead Pre-operative length (cm): 1.3 Pre-operative width (cm): 1 Indications for Mohs surgery: anatomic location where tissue conservation is critical Micrographic Surgery Details: Post-operative length (cm): 1.5 Post-operative width (cm): 2 Number of Mohs stages: 2 Stage 1 Comments: The patient was brought into the operating room and placed in the procedure chair in the appropriate position. The area positive by previous biopsy was identified and confirmed with the patient. The area of clinically obvious tumor was debulked using a curette and/or scalpel as needed. An incision was made following the Mohs approach through the skin. The specimen was taken to the lab, divided into 2 piece(s) and appropriately chromacoded and processed. Tumor was seen on the lateral margins as indicated on the on the Mohs map. Basal cell carcinoma. Histologic examination revealed basaloid budding with palisading from a hair follicle concerning for basal cell carcinoma. Tumor features identified on Mohs section: basal carcinoma Depth of invasion: dermis Stage 2 Comments: The area of positivity as noted on the Mohs map in the previous stage was identified and removed using the Mohs technique. The specimen was taken to the lab and appropriately chromacoded and processed in 1 piece(s). Tumor features identified on Mohs section: no tumor identified Depth of defect: subcutaneous fat Patient tolerance of procedure: tolerated well, no immediate complications Reconstruction: Was the defect reconstructed?: No Fine/surface layer approximation (top stitches) Post-procedure details: sterile dressing applied and wound care instructions given [facility] Work Phone: [facility] Work Phone: CBC With Platelet and Differ entialon 09-11-2018 Abs Imm Granulocytes 0.03 E9/L Normal [facility] Basophils #/vol (Bld) 0.05 E9/L Normal 0.00-0.20 [facility] Basophils/100 WBC (Bld) 0.7 % Normal 0.0-2.0 [facility] Eosinophils #/vol (Bld) 0.05 E9/L Normal 0.05-0.50 [facility] Eosinophils/100 WBC (Bld) 0.7 % Normal 0.0-6.0 [facility] Erythrocyte distribution width Ratio (RBC) 14.4 fL Normal 11.5-15.0 [facility] Hematocrit Volume Fraction (Bld) 42.0 % Normal 34.0-48.0 [facility] Hemoglobin mass conc (Bld) 12.9 g/dL Normal 11.5-15.5 [facility] Imm Granulocytes 0.4 % Normal 0.0-5.0 [facility] Lymphocytes #/vol (Bld) 2.28 E9/L Normal 1.50-4.00 [facility] Lymphocytes/100 WBC (Bld) 34.2 % Normal 20.0-42.0 [facility] MCH Entitic mass (RBC) 26.4 pg Normal 26.0-35.0 [facility] MCHC mass conc (RBC) 30.7 % Low 32.0-34.5 [facility] MCV Entitic volume (RBC) 86.1 fL Normal 80.0-99.9 [facility] Monocytes #/vol (Bld) 0.43 E9/L Normal 0.10-0.95 [facility] Monocytes/100 WBC (Bld) 6.4 % Normal 2.0-12.0 [facility] Neutrophils #/vol (Bld) 3.83 E9/L Normal 1.80-7.30 [facility] Neutrophils/100 WBC (Bld) 57.6 % Normal 43.0-80.0 [facility] Platelet mean volume Entitic volume (Bld) 10.4 fL Normal 7.0-12.0 [facility] Platelets #/vol (Bld) 578 E9/L High 130-450 [facility] RBC #/vol (Bld) 4.88 E12/L Normal 3.50-5.50 [facility] WBC #/vol (Bld) 6.7 E9/L Normal 4.5-11.5 [facility] Comprehensive Metabolic Pane donte 09-11-2018 Albumin mass conc 4.7 g/dL Normal 3.5-5.2 [facility] ALP enzyme act/vol 115 U/L High 35-104 [facility] ALT enzyme act/vol 12 U/L Normal 0-32 [facility] Anion gap molar conc 13 mmol/L Normal 7-16 [facility] AST enzyme act/vol 17 U/L Normal 0-31 [facility] Bilirubin mass conc 0.4 mg/dL Normal 0.0-1.2 [facility] Calcium mass conc 9.4 mg/dL Normal 8.6-10.2 [facility] Chloride molar conc 98 mmol/L Normal 98-107 [facility] CO2 molar conc 28 mmol/L Normal 22-29 [facility] Creatinine mass conc 0.8 mg/dL Normal 0.5-1.0 [facility] GFR/1.73 sq M predicted among blacks MDRD vol rate/area (S/P/Bld) mL/min/{1.73_m2} Normal [facility] GFR/1.73 sq M predicted among non-blacks MDRD vol rate/area (S/P/Bld) mL/min/{1.73_m2} Normal >=60 [facility] Comment on above: Result Comment: Senior Hris Analyst yenni Kidney Disease: less than 60 ml/min/1.73 sq.m. Kidney Failure: less than 15 ml/min/1.73 sq.m. Results valid for patients 18 years and older. Glucose mass conc 105 mg/dL High 74-99 [facility] Potassium molar conc 4.8 mmol/L Normal 3.5-5.0 [facility] Protein mass conc 7.9 g/dL Normal 6.4-8.3 [facility] Sodium molar conc 139 mmol/L Normal 132-146 [facility] Urea nitrogen mass conc 7 mg/dL Low 8-23 [facility] Lipid Panelon 09-11-2018 Cholesterol in HDL mass conc 46 mg/dL Normal >40 [facility] Cholesterol in LDL mass conc 206 mg/dL High 0-99 [facility] Cholesterol mass conc 279 mg/dL High 0-199 [facility] Triglyceride mass conc 136 mg/dL Normal 0-149 [facility] VLDL Cholesterol (Calculated) 27 mg/dL Normal [facility] TSH w/out Reflexon 9 Thyrotropin Qn 1.450 uIU/mL Normal 0.270-4.200 [facility] BLOOD CULTURE AEROBICon BLOOD CULTURE AEROBIC BLOOD CULTURE AEROBIC NO BACTERIAL GROWTH BLOOD CULTURE ANAEROBIC NO BACTERIAL GROWTH Normal [facility] Comment on above: Performed By: #### C BCD, CMP, LIP #### [facility] [address] [place] [address] BASIC METABOLIC PANELon 06-09 Calcium [Mass/Vol] 7.4 mg/dL Low 8.5-10.5 [facility] Comment on above: Performed By: #### C BCD, CMP, LIP #### [facility] [address] [place] [address] Chloride [Moles/Vol] 111 mmol/L High 98-107 [facility] Comment on above: Performed By: #### C BCD, CMP, LIP #### [facility] [address] [place] [address] CO2 [Moles/Vol] 25 mmol/L Normal 21-32 [facility] Comment on above: Performed By: #### C BCD, CMP, LIP #### [facility] [address] [place] [address] Creatinine [Mass/Vol] 0.85 mg/dL Normal 0.55-1.02 [facility] Comment on above: Performed By: #### C BCD, CMP, LIP #### [facility] [address] [place] [address] EST GLOM FILT > 60 Normal [facility] Comment on above: Result Comment: Result Units: mL/min/1.73 m2 Note: Persistent reduction for 3 months or more of an eGFR of <60 ml/min/1.73 m2 defines Chronic Kidney Disease (CKD). Patients with eGFR values greater than or equal to 60 ml/min/1.73 m2 may also have CKD if evidence of persistent proteinuria is present. STAGES OF CKD eGFR Stage 1 Kidney damage with normal kidney function >=90 Stage 2 Kidney damage with mild loss of kidney function 89-60 Stage 3a Mild to moderate loss of kidney function 59-44 Stage 3b Moderate to severe loss of kidney function 43-30 Stage 4 Severe loss of kidney function 29-15 Stage 5 Kidney failure < 15 . Performed By: #### C BCD, CMP, LIP #### [facility] [address] [place] [address] ESTIMATED GLOM FILT RATE > 60 [facility] Comment on above: Performed By: #### C BCD, CMP, LIP #### [facility] [address] [place] [address] Glucose [Mass/Vol] 92 mg/dL Normal 65-99 [facility] Comment on above: Performed By: #### C BCD, CMP, LIP #### [facility] [address] [place] [address] Potassium [Moles/Vol] 3.4 mmol/L Low 3.5-5.1 [facility] Comment on above: Performed By: #### C BCD, CMP, LIP #### [facility] [address] [place] [address] Sodium [Moles/Vol] 143 mmol/L Normal 136-145 [facility] Comment on above: Performed By: #### C BCD, CMP, LIP #### [facility] [address] [place] [address] Urea nitrogen [Mass/Vol] 6 mg/dL Low 7-24 [facility] Comment on above: Performed By: #### C BCD, CMP, LIP #### [facility] [address] [place] [address] CBC with DIFFERENTIALon 06-09 Basophils (Bld) [#/Vol] 0.0 10*3/uL Normal 0.0-0.1 [facility] Comment on above: Performed By: #### C BCD, CMP, LIP #### [facility] [address] [place] [address] Basophils/100 WBC (Bld) 0.2 % Normal 0.0-1.0 [facility] Comment on above: Performed By: #### C BCD, CMP, LIP #### [facility] [address] [place] [address] Eosinophils (Bld) [#/Vol] 0.1 10*3/uL Normal 0.0-0.4 [facility] Comment on above: Performed By: #### C BCD, CMP, LIP #### [facility] [address] [place] [address] Eosinophils/100 WBC (Bld) 2.2 % Normal 1.0-4.0 [facility] Comment on above: Performed By: #### C BCD, CMP, LIP #### [facility] [address] [place] [address] Hematocrit (Bld) [Volume fraction] 32.8 % Low 37.0-47.0 [facility] Comment on above: Performed By: #### C BCD, CMP, LIP #### [facility] [address] [place] [address] Hemoglobin (Bld) [Mass/Vol] 10.0 g/dL Low 12.0-16.0 [facility] Comment on above: Performed By: #### C BCD, CMP, LIP #### [facility] [address] [place] [address] IG # 0.0 10*3/uL Normal 0.0-0.[address] [facility] Comment on above: Performed By: #### C BCD, CMP, LIP #### [facility] [address] [place] [address] IG % 0.5 % Normal 0.0-1.0 [facility] Comment on above: Performed By: #### C BCD, CMP, LIP #### [facility] [address] [place] [address] Lymphocytes (Bld) [#/Vol] 1.7 10*3/uL Normal 1.3-4.4 [facility] Comment on above: Performed By: #### C BCD, CMP, LIP #### [facility] [address] [place] [address] Lymphocytes/100 WBC (Bld) 43.0 % High 27.0-41.0 [facility] Comment on above: Performed By: #### C BCD, CMP, LIP #### [facility] [address] [place] [address]93 MCH (RBC) [Entitic mass] 30.5 g/dl Low 33.0-37.0 [facility] Comment on above: Performed By: #### C BCD, CMP, LIP #### [facility] [address] [place] [address] MCV (RBC) [Entitic vol] 86.8 fL Normal 81.0-99.0 [facility] Comment on above: Performed By: #### C BCD, CMP, LIP #### [facility] [address] [place] [address] 39973 MEAN CORPUSCULAR HGB 26.5 pg Low 27.0-31.0 [facility] Comment on above: Performed By: #### C BCD, CMP, LIP #### [facility] [address] [place] [address] Monocytes (Bld) [#/Vol] 0.6 10*3/uL Normal 0.1-1.0 [facility] Comment on above: Performed By: #### C BCD, CMP, LIP #### [facility] [address] [place] [address] Monocytes/100 WBC (Bld) 14.2 % High 3.0-9.0 [facility] Comment on above: Performed By: #### C BCD, CMP, LIP #### [facility] [address] [place] [address] Neutrophils (Bld) [#/Vol] 1.6 10*3/uL Low 2.3-7.9 [facility] Comment on above: Performed By: #### C BCD, CMP, LIP #### [facility] [address] [place] [address] Neutrophils/100 WBC (Bld) 39.9 % Low 47.0-73.0 [facility] Comment on above: Performed By: #### C BCD, CMP, LIP #### [facility] [address] [place] [address] NUCLEATED RED BLOOD CELL 0.0 10*3/uL Normal 0.0-0.0 [facility] Comment on above: Performed By: #### C BCD, CMP, LIP #### [facility] [address] [place] [address] NUCLEATED RED BLOOD CELL 0.0 % Normal 0.0-0.0 [facility] Comment on above: Performed By: #### C BCD, CMP, LIP #### [facility] [address] [place] [address] 57677 PLATELET COUNT AUTOMATED 329 10*3/uL Normal 130-400 [facility] Comment on above: Performed By: #### C BCD, CMP, LIP #### [facility] [address] [place] [address] 95[address] Platelet mean volume (Bld) [Entitic vol] 9.9 fL Normal 9.6-12.3 [facility] Comment on above: Performed By: #### C BCD, CMP, LIP #### [facility] [address] [place] [address]57 RBC (Bld) [#/Vol] 3.78 10*6/uL Low 4.10-5.10 [facility] Comment on above: Performed By: #### C BCD, CMP, LIP #### [facility] [address] [place] [address] 71487 RED CELL DISTRI WIDTH 15.0 % High 0-14.5 [facility] Comment on above: Performed By: #### C BCD, CMP, LIP #### [facility] [address] [place] [address] 03361 WBC (Bld) [#/Vol] 4.0 10*3/uL Low 4.8-10.8 [facility] Comment on above: Performed By: #### C BCD, CMP, LIP #### [facility] [address] [place] [address] MAGNESIUMon 07-05-2018 Magnesium [Mass/Vol] 2.0 mg/dL Normal 1.5-2.1 [facility] Comment on above: Performed By: #### C BCD, CMP, LIP #### [facility] [address] [place] [address] PHOSPHOROUSon 07-05-2018 PHOSPHOROUS 2.7 mg/dL Normal 2.5-4.[address] [facility] Comment on above: Performed By: #### C BCD, CMP, LIP #### [facility] [address] [place] [address]358 CBC with DIFFERENTIALon 06-09 Hematocrit (Bld) [Volume fraction] 38.6 % Normal 37.0-47.0 [facility] Comment on above: Performed By: #### C BCD, DIFF, CMP, FT4, TSH #### [facility] [address] [place] [address]66 Hemoglobin (Bld) [Mass/Vol] 12.0 g/dL Normal 12.0-16.0 [facility] Comment on above: Performed By: #### C BCD, DIFF, CMP, FT4, TSH #### [facility] [address] [place] [address] MCH (RBC) [Entitic mass] 31.1 g/dl Low 33.0-37.0 [facility] Comment on above: Performed By: #### C BCD, DIFF, CMP, FT4, TSH #### [facility] [address] [place] [address] 90776 MCV (RBC) [Entitic vol] 87.1 fL Normal 81.0-99.0 [facility] Comment on above: Performed By: #### C BCD, DIFF, CMP, FT4, TSH #### [facility] [address] [place] [address] 695[address] MEAN CORPUSCULAR HGB 27.1 pg Normal 27.0-31.0 [facility] Comment on above: Performed By: #### C BCD, DIFF, CMP, FT4, TSH #### [facility] [address] [place] [address] 47669 NUCLEATED RED BLOOD CELL 0.0 % Normal 0.0-0.0 [facility] Comment on above: Performed By: #### C BCD, DIFF, CMP, FT4, TSH #### [facility] [address] [place] [address] 37015 NUCLEATED RED BLOOD CELL 0.0 10*3/uL Normal 0.0-0.0 [facility] Comment on above: Performed By: #### C BCD, DIFF, CMP, FT4, TSH #### [facility] [address] [place] [address] 27885 PLATELET COUNT AUTOMATED 425 10*3/uL High 130-400 [facility] Comment on above: Performed By: #### C BCD, DIFF, CMP, FT4, TSH #### [facility] [address] [place] [address] Platelet mean volume (Bld) [Entitic vol] 10.8 fL Normal 9.6-12.3 [facility] Comment on above: Performed By: #### C BCD, DIFF, CMP, FT4, TSH #### [facility] [address] [place] [address] 77845 RBC (Bld) [#/Vol] 4.43 10*6/uL Normal 4.10-5.10 [facility] Comment on above: Performed By: #### C BCD, DIFF, CMP, FT4, TSH #### [facility] [address] [place] [address] 02632 RED CELL DISTRI WIDTH 14.7 % High 0-14.5 [facility] Comment on above: Performed By: #### C BCD, DIFF, CMP, FT4, TSH #### [facility] [address] [place] [address] 10481 WBC (Bld) [#/Vol] 13.4 10*3/uL High 4.8-10.8 [facility] Comment on above: Performed By: #### C BCD, DIFF, CMP, FT4, TSH #### [facility] [address] [place] [address] 52404 Basophils (Bld) [#/Vol] 0.0 10*3/uL Normal 0.0-0.1 [facility] Comment on above: Performed By: #### C BCD, CMP, LIP #### [facility] [address] [place] [address] 16932 Basophils/100 WBC (Bld) 0.2 % Normal 0.0-1.0 [facility] Comment on above: Performed By: #### C BCD, CMP, LIP #### [facility] [address] [place] [address] 34097 Eosinophils (Bld) [#/Vol] 0.1 10*3/uL Normal 0.0-0.4 [facility] Comment on above: Performed By: #### C BCD, CMP, LIP #### [facility] [address] [place] [address] Eosinophils/100 WBC (Bld) 0.3 % Low 1.0-4.0 [facility] Comment on above: Performed By: #### C BCD, CMP, LIP #### [facility] [address] [place] [address] 91697 Hematocrit (Bld) [Volume fraction] 42.2 % Normal 37.0-47.0 [facility] Comment on above: Performed By: #### C BCD, CMP, LIP #### [facility] [address] [place] [address] 67207 Hemoglobin (Bld) [Mass/Vol] 13.6 g/dL Normal 12.0-16.0 [facility] Comment on above: Performed By: #### C BCD, CMP, LIP #### [facility] [address] [place] [address] 55510 IG # 0.1 10*3/uL Normal 0.0-0.[address] [facility] Comment on above: Performed By: #### C BCD, CMP, LIP #### [facility] [address] [place] [address] 00557 IG % 0.5 % Normal 0.0-1.0 [facility] Comment on above: Performed By: #### C BCD, CMP, LIP #### [facility] [address] [place] [address] 32647 Lymphocytes (Bld) [#/Vol] 1.0 10*3/uL Low 1.3-4.4 [facility] Comment on above: Performed By: #### C BCD, CMP, LIP #### [facility] [address] [place] [address] 34096 Lymphocytes/100 WBC (Bld) 5.1 % Low 27.0-41.0 [facility] Comment on above: Performed By: #### C BCD, CMP, LIP #### [facility] [address] [place] [address] MCH (RBC) [Entitic mass] 32.2 g/dl Low 33.0-37.0 [facility] Comment on above: Performed By: #### C BCD, CMP, LIP #### [facility] [address] [place] [address] MCV (RBC) [Entitic vol] 84.9 fL Normal 81.0-99.0 [facility] Comment on above: Performed By: #### C BCD, CMP, LIP #### [facility] [address] [place] [address] MEAN CORPUSCULAR HGB 27.4 pg Normal 27.0-31.0 [facility] Comment on above: Performed By: #### C BCD, CMP, LIP #### [facility] [address] [place] [address] 31180 Monocytes (Bld) [#/Vol] 1.1 10*3/uL High 0.1-1.0 [facility] Comment on above: Performed By: #### C BCD, CMP, LIP #### [facility] [address] [place] [address] 67876 Monocytes/100 WBC (Bld) 5.2 % Normal 3.0-9.0 [facility] Comment on above: Performed By: #### C BCD, CMP, LIP #### [facility] [address] [place] [address] Neutrophils (Bld) [#/Vol] 18.3 10*3/uL High 2.3-7.9 [facility] Comment on above: Performed By: #### C BCD, CMP, LIP #### [facility] [address] [place] [address] Neutrophils/100 WBC (Bld) 88.7 % High 47.0-73.0 [facility] Comment on above: Performed By: #### C BCD, CMP, LIP #### [facility] [address] [place] [address] NUCLEATED RED BLOOD CELL 0.0 % Normal 0.0-0.0 [facility] Comment on above: Performed By: #### C BCD, CMP, LIP #### [facility] [address] [place] [address] 98617 NUCLEATED RED BLOOD CELL 0.0 10*3/uL Normal 0.0-0.0 [facility] Comment on above: Performed By: #### C BCD, CMP, LIP #### [facility] [address] [place] [address] 49360 PLATELET COUNT AUTOMATED 544 10*3/uL High 130-400 [facility] Comment on above: Performed By: #### C BCD, CMP, LIP #### [facility] [address] [place] [address] 07693 Platelet mean volume (Bld) [Entitic vol] 10.2 fL Normal 9.6-12.3 [facility] Comment on above: Performed By: #### C BCD, CMP, LIP #### [facility] [address] [place] [address] 24465 RBC (Bld) [#/Vol] 4.97 10*6/uL Normal 4.10-5.10 [facility] Comment on above: Performed By: #### C BCD, CMP, LIP #### [facility] [address] [place] [id number] RED CELL DISTRI WIDTH 14.6 % High 0-14.5 [facility] Comment on above: Performed By: #### C BCD, CMP, LIP #### [facility] [address] [place] [address] WBC (Bld) [#/Vol] 20.6 10*3/uL High 4.8-10.8 [facility] Comment on above: Performed By: #### C BCD, CMP, LIP #### [facility] [address] [place] [address] COMPREHENSIVE METABOLIC PANE Donte 07-04-2018 Albumin [Mass/Vol] 3.5 gm/dl Normal 3.1-4.5 [facility] Comment on above: Performed By: #### C BCD, DIFF, CMP, FT4, TSH #### [facility] [address] [place] [address] ALP [Catalytic activity/Vol] 107 U/L Normal 45-117 [facility] Comment on above: Performed By: #### C BCD, DIFF, CMP, FT4, TSH #### [facility] [address] [place] [address] ALT [Catalytic activity/Vol] 21 U/L Normal 12-78 [facility] Comment on above: Performed By: #### C BCD, DIFF, CMP, FT4, TSH #### [facility] [address] [place] [address] Bilirubin [Mass/Vol] 0.4 mg/dL Normal 0.2-1.0 [facility] Comment on above: Performed By: #### C BCD, DIFF, CMP, FT4, TSH #### [facility] [address] [place] [address] Calcium [Mass/Vol] 7.7 mg/dL Low 8.5-10.5 [facility] Comment on above: Performed By: #### C BCD, DIFF, CMP, FT4, TSH #### [facility] [address] [place] [address] Chloride [Moles/Vol] 109 mmol/L High 98-107 [facility] Comment on above: Performed By: #### C BCD, DIFF, CMP, FT4, TSH #### [facility] [address] [place] [address] CO2 [Moles/Vol] 24 mmol/L Normal 21-32 [facility] Comment on above: Performed By: #### C BCD, DIFF, CMP, FT4, TSH #### [facility] [address] [place] [address] Creatinine [Mass/Vol] 0.85 mg/dL Normal 0.55-1.02 [facility] Comment on above: Performed By: #### C BCD, DIFF, CMP, FT4, TSH #### [facility] [address] [place] [address] EST GLOM FILT > 60 Normal [facility] Comment on above: Result Comment: Result Units: mL/min/1.73 m2 Note: Persistent reduction for 3 months or more of an eGFR of <60 ml/min/1.73 m2 defines Chronic Kidney Disease (CKD). Patients with eGFR values greater than or equal to 60 ml/min/1.73 m2 may also have CKD if evidence of persistent proteinuria is present. STAGES OF CKD eGFR Stage 1 Kidney damage with normal kidney function >=90 Stage 2 Kidney damage with mild loss of kidney function 89-60 Stage 3a Mild to moderate loss of kidney function 59-44 Stage 3b Moderate to severe loss of kidney function 43-30 Stage 4 Severe loss of kidney function 29-15 Stage 5 Kidney failure < 15 . Performed By: #### C BCD, DIFF, CMP, FT4, TSH #### [facility] [address] [place] [address] ESTIMATED GLOM FILT RATE > 60 Normal [facility] Comment on above: Performed By: #### C BCD, DIFF, CMP, FT4, TSH #### [facility] [address] [place] [address] Glucose [Mass/Vol] 119 mg/dL High 65-99 [facility] Comment on above: Performed By: #### C BCD, DIFF, CMP, FT4, TSH #### [facility] [address] [place] [address] Potassium [Moles/Vol] 4.0 mmol/L Normal 3.5-5.1 [facility] Comment on above: Performed By: #### C BCD, DIFF, CMP, FT4, TSH #### [facility] [address] [place] [address] Protein [Mass/Vol] 7.2 g/dL Normal 6.4-8.2 [facility] Comment on above: Performed By: #### C BCD, DIFF, CMP, FT4, TSH #### [facility] [address] [place] [address] SGOT/AST 14 IU/L Normal 3-35 [facility] Comment on above: Performed By: #### C BCD, DIFF, CMP, FT4, TSH #### [facility] [address] [place] [address] Sodium [Moles/Vol] 141 mmol/L Normal 136-145 [facility] Comment on above: Performed By: #### C BCD, DIFF, CMP, FT4, TSH #### [facility] [address] [place] [address] Urea nitrogen [Mass/Vol] 9 mg/dL Normal 7-24 [facility] Comment on above: Performed By: #### C BCD, DIFF, CMP, FT4, TSH #### [facility] [address] [place] [address] Albumin [Mass/Vol] 4.3 gm/dl Normal 3.1-4.5 [facility] Comment on above: Performed By: #### C BCD, CMP, LIP #### [facility] [address] [place] [address] ALP [Catalytic activity/Vol] 131 U/L High 45-117 [facility] Comment on above: Performed By: #### C BCD, CMP, LIP #### [facility] [address] [place] [address] ALT [Catalytic activity/Vol] 26 U/L Normal 12-78 [facility] Comment on above: Performed By: #### C BCD, CMP, LIP #### [facility] [address] [place] [address] Bilirubin [Mass/Vol] 0.4 mg/dL Normal 0.2-1.0 [facility] Comment on above: Performed By: #### C BCD, CMP, LIP #### [facility] [address] [place] [address] Calcium [Mass/Vol] 9.0 mg/dL Normal 8.5-10.5 [facility] Comment on above: Performed By: #### C BCD, CMP, LIP #### [facility] [address] [place] [address] Chloride [Moles/Vol] 104 mmol/L Normal 98-107 [facility] Comment on above: Performed By: #### C BCD, CMP, LIP #### [facility] [address] [place] [address] CO2 [Moles/Vol] 25 mmol/L Normal 21-32 [facility] Comment on above: Performed By: #### C BCD, CMP, LIP #### [facility] [address] [place] [address] Creatinine [Mass/Vol] 0.92 mg/dL Normal 0.55-1.02 [facility] Comment on above: Performed By: #### C BCD, CMP, LIP #### [facility] [address] [place] [address] EST GLOM FILT > 60 Normal [facility] Comment on above: Result Comment: Result Units: mL/min/1.73 m2 Note: Persistent reduction for 3 months or more of an eGFR of <60 ml/min/1.73 m2 defines Chronic Kidney Disease (CKD). Patients with eGFR values greater than or equal to 60 ml/min/1.73 m2 may also have CKD if evidence of persistent proteinuria is present. STAGES OF CKD eGFR Stage 1 Kidney damage with normal kidney function >=90 Stage 2 Kidney damage with mild loss of kidney function 89-60 Stage 3a Mild to moderate loss of kidney function 59-44 Stage 3b Moderate to severe loss of kidney function 43-30 Stage 4 Severe loss of kidney function 29-15 Stage 5 Kidney failure < 15 . Performed By: #### C BCD, CMP, LIP #### [facility] [address] [place] [address] ESTIMATED GLOM FILT RATE > 60 Normal [facility] Comment on above: Performed By: #### C BCD, CMP, LIP #### [facility] [address] [place] [address] Glucose [Mass/Vol] 134 mg/dL High 65-99 [facility] Comment on above: Performed By: #### C BCD, CMP, LIP #### [facility] [address] [place] [address] Potassium [Moles/Vol] 3.7 mmol/L Normal 3.5-5.1 [facility] Comment on above: Performed By: #### C BCD, CMP, LIP #### [facility] [address] [place] [address] Protein [Mass/Vol] 8.6 g/dL High 6.4-8.2 [facility] Comment on above: Performed By: #### C BCD, CMP, LIP #### [facility] [address] [place] [address] SGOT/AST 15 IU/L Normal 3-35 [facility] Comment on above: Performed By: #### C BCD, CMP, LIP #### [facility] [address] [place] [address] Sodium [Moles/Vol] 138 mmol/L Normal 136-145 [facility] Comment on above: Performed By: #### C BCD, CMP, LIP #### [facility] [address] [place] [address] Urea nitrogen [Mass/Vol] 11 mg/dL Normal 7-24 [facility] Comment on above: Performed By: #### C BCD, CMP, LIP #### [facility] [address] [place] [address] ELECTROCARDIOGRAM REPORTon 0 07-04-2018 Federal Mediator Report [place], [place] ELECTROCARDIOGRAM REPORT NAME: DAYSI YOUNG UNIT #: [id number] ROOM: [facility] DOCTOR: NIA DRAFT REPORT BIRTHDATE: [birth year] [facility] Test Date: 2018-07-04 Test Time: 02:22:29 Pat Name: DAYSI YOUNG Department: Room: [facility] 2 Gender: 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 Melgoza : 1955 Requested By: GEOVANNA DURAN Order Number: [id number] Reading MD: Carlos Lewis MD Measurements Intervals [place] Rate: 87 P: LA: QRS: 51 QRSD: 99 T: 3 QT: 416 QTc: 501 Interpretive Statements NSR Borderline T wave abnormalities Prolonged QT interval Electronically Signed On 07-06-2018 9:47:14 PST by Carlos Lewis MD CM:EKGRPT:ELECTROCAR DIOGRAM REPORT 1 GEOVANNA DURAN DO EPIPHANY DRAFT REPORT GEOVANNA DURAN DO Normal [facility] FREE T4on 07-04-2018 Free T4 [Mass/Vol] 0.89 ng/dL Normal 0.76-1.46 [facility] Comment on above: Performed By: #### C BCD, CMP, LIP #### [facility] [address] [place] [address] LACTIC ACID BASELINEon 07-04 LACTIC ACID BASELINE 1.5 mmol/L Normal 0.4-2.0 [facility] Comment on above: Performed By: #### L ABASE #### [facility] [address] [place] [address] LIPASEon 07-04-2018 Lipase [Catalytic activity/Vol] 92 U/L Normal 73-393 [facility] Comment on above: Performed By: #### C BCD, CMP, LIP #### [facility] [address] [place] [address] MANUAL DIFFERENTIALon 2018 Basophils (Bld) [#/Vol] 0.0 10*3/uL Normal 0-0.1 [facility] Comment on above: Performed By: #### C BCD, DIFF, CMP, FT4, TSH #### [facility] [address] [place] [address] EOSINOPHIL # 0.0 10*3/uL Normal 0-0.4 [facility] Comment on above: Performed By: #### C BCD, DIFF, CMP, FT4, TSH #### [facility] [address] [place] [address] IMMATURE GRANULOCYTES # 0.0 10*3/uL Normal 0-0.1 [facility] Comment on above: Performed By: #### C BCD, DIFF, CMP, FT4, TSH #### [facility] [address] [place] [address] LYMPHOCYTES 3 % Low 27-[address] [facility] Comment on above: Performed By: #### C BCD, DIFF, CMP, FT4, TSH #### [facility] [address] [place] [address] Lymphocytes (Bld) [#/Vol] 0.4 10*3/uL Low 1.3-4.4 [facility] Comment on above: Performed By: #### C BCD, DIFF, CMP, FT4, TSH #### [facility] [address] [place] [address] MONOCYTES 2 % Low 3-9 [facility] Comment on above: Performed By: #### C BCD, DIFF, CMP, FT4, TSH #### [facility] [address] [place] [address] Monocytes (Bld) [#/Vol] 0.3 10*3/uL Normal 0.1-1.0 [facility] Comment on above: Performed By: #### C BCD, DIFF, CMP, FT4, TSH #### [facility] [address] [place] [address] NEUTROPHILS 95 % High 47-[address] [facility] Comment on above: Performed By: #### C BCD, DIFF, CMP, FT4, TSH #### [facility] [address] [place] [address] Neutrophils (Bld) [#/Vol] 12.7 10*3/uL High 2.3-7.9 [facility] Comment on above: Performed By: #### C BCD, DIFF, CMP, FT4, TSH #### [facility] [address] [place] [address] PLATELET SUFFICIENCY HIGH Normal NORMAL [facility] Comment on above: Performed By: #### C BCD, DIFF, CMP, FT4, TSH #### [facility] [address] [place] [address] RBC morphology finding Nom (Bld) NORMAL Normal NORMAL [facility] Comment on above: Performed By: #### C BCD, DIFF, CMP, FT4, TSH #### [facility] [address] [place] [address] RAPID INFLUENZA A/Bon 2018 RAPID INFLUENZA A/B Negative Normal [facility] Comment on above: Performed By: #### F EVIE #### [facility] [address] [place] [address] THYROID STIM HORMONE (HS)on 07-04-2018 THYROID STIM HORMONE (HS) 1.340 uIU/ml Normal 0.358-4.75 [facility] Comment on above: Performed By: #### C BCD, CMP, LIP #### [facility] [address] [place] [address] URINALYSIS REFLEX TO CULTURE on 07-04-2018 Bacteria LM.HPF (Urine sed) [#/Area] TRACE Normal [facility] Comment on above: Performed By: #### U ARFXUC #### [facility] [address] [place] [address] Bilirubin [Mass/Vol] Negative Normal NEGATIVE [facility] Comment on above: Performed By: #### U ARFXUC #### [facility] [address] [place] [address] BLOOD Negative Normal NEGATIVE [facility] Comment on above: Performed By: #### U ARFXUC #### [facility] [address] [place] [address] Clarity (U) SL CLOUDY Normal CLEAR [facility] Comment on above: Performed By: #### U ARFXUC #### [facility] [address] [place] [address] Color (U) YELLOW Normal YELLOW [facility] Comment on above: Performed By: #### U ARFXUC #### [facility] [address] [place] [address] Epithelial cells LM.HPF (Urine sed) [#/Area] 25-30 Normal [facility] Comment on above: Performed By: #### U ARFXUC #### [facility] [address] [place] [address] Glucose [Mass/Vol] Negative Normal NEGATIVE [facility] Comment on above: Performed By: #### U ARFXUC #### [facility] [address] [place] [address] KETONE TRACE Normal NEGATIVE [facility] Comment on above: Performed By: #### U ARFXUC #### [facility] [address] [place] [address] LEUKO ESTERASE Negative Normal NEGATIVE [facility] Comment on above: Performed By: #### U ARFXUC #### [facility] [address] [place] [address] Nitrite Ql (U) Negative Normal NEGATIVE [facility] Comment on above: Performed By: #### U ARFXUC #### [facility] [address] [place] [address] pH (Bld) 5.5 Normal 5.0-9.0 [facility] Comment on above: Performed By: #### U ARFXUC #### [facility] [address] [place] [address] Protein (U) [Mass/Vol] TRACE Normal NEGATIVE [facility] Comment on above: Performed By: #### U ARFXUC #### [facility] [address] [place] [address] RBC (U) [#/Vol] 2-4 Normal 0-2 [facility] Comment on above: Performed By: #### U ARFXUC #### [facility] [address] [place] [address] Specific gravity (U) [Rel density] >= 1.030 Normal 1.005-1.030 [facility] Comment on above: Performed By: #### U ARFXUC #### [facility] [address] [place] [address] URINE REFLEX COMMENT NO Normal NO [facility] Comment on above: Performed By: #### U ARFXUC #### [facility] [address] [place] [address]30 Urobilinogen Qn (U) 0.2 E.U./dl Normal 0.2-1.0 [facility] Comment on above: Performed By: #### U ARFXUC #### [facility] [address] [place] [address] WBC (Bld) [#/Vol] 2-4 Normal 0-5 [facility] Comment on above: Performed By: #### U ARFXUC #### [facility] [address] [place] [address] Progress Noteon 10-26-2017 HIM IP Note OR Federal Mediator Normal [facility] DEXA BONE DENSITY AXIAL SKEL ETONon 10-20-2017 DEXA BONE DENSITY AXIAL SKELETON Patient : 3Age: 62 yearsGender: FemaleOrder Date: 10/20/2017 1:04 PMEXAM: DEXA BONE DENSITY AXIAL SKELETONNUMBER OF IMAGES: 2INDICATION: M 85.89 Osteopenia of Multiple Sites. Screening forOsteoporosis COMPARISON: NoneFINDINGS: BMD T-score Z-scoreSite (g/cm2) (SD vs young adult) (SD vs age-matched) AP Spine 0.910 -2.2 -1.3 Rt. Femur 0.743 -2.1 -1.5Lt. Femur 0.798 -1.7 -1.0Comment: World Health Organization classifications: Normal: T-score at or above -1 SD Osteopenia: T-score between -1 and -2.5 SD Osteoporosis: T-score at or below -2.5 SDIMPRESSION: Osteopenia of the lumbar spine and hips. Interpreted by:MK Alexandraigned by:Thomas Colon MD10/20/17inal result Normal [facility] Procedureon 10-20-2017 HIM IP Note OR Federal Mediator Normal [facility] Vital Signs Date Time Vital Sign Value Performing Clinician Faci lity 03-16-2023 08:45-0500 Diastolic blood pressure 82 mm[Hg] Edwin Wheeler MD Work Phone: [facility] 03-16-2023 08:45-0500 Heart rate 87 /min Edwin Wheeler MD Work Phone: [facility] 03-16-2023 08:45-0500 Systolic blood pressure 173 mm[Hg] Edwin Wheeler MD Work Phone: [facility] Encounters Encounter Date Encounter Type Care Provider Facility Start: 03-16-2023 End: 03-16-2023 ambulatory [facility] Ambulatory Start: 03-16-2023 End: 03-16-2023 Patient encounter procedure Edwin Wheeler MD Work Phone: [facility] Comment on above: Basal cell carcinoma (BCC) of skin of other part of face Start: 03-02-2023 End: 03-02-2023 ambulatory [facility]ulatory Start: 03-02-2023 End: 03-02-2023 Office outpatient new 45 minutes Edwin Wheeler MD Work Phone: [facility] Comment on above: Basal cell carcinoma , forehead (Primary Dx) Start: 09-11-2018 End: 09-14-2018 Patient encounter procedure [facility] Start: 10-20-2017 End: 10-23-2017 Ambulatory [facility] Procedures Date Procedure Procedure Detail Performing Clinician Start: 03-16-2023 HUONG NURSING COMMUNIC ATION - LIDOCAINE INJ EDWIN WHEELER Start: 03-16-2023 MOHS SURGERY EDWIN WHEELER Start: 03-16-2023 MOHS SURGERY Edwin costa MD Work Phone: Start: 09-11-2018 Assay of thyroid stimulating hormone tsh XAVI LIANG Start: 09-11-2018 Blood count complete auto&auto difrntl wbc XAVI LIANG Start: 09-11-2018 Comprehensive metabo lic panel XAVI LIANG Start: 09-11-2018 Lipid panel XAVI CELESTIN Start: 10-20-2017 Dxa bone density candice dy 1/> sites axial skel XAVI LIANG Plan of Treatment Date Care Activity Detail Author Start: 03-16-2023 End: 03-16-2023 Patient encounter procedure 03/16/2023 9:00 AM EST Office Visit [place] [address] [address] Edwin Wheeler MD [address] [address] [facility] Start: 01-06-2023 Influenza vaccination Influenza Vaccine (#1) [facility] Start: 2018 Pneumococcal Vaccine: 65+ Years (1 - PCV) Pneumococcal Vaccine: 65+ Years (1 - PCV) [facility] Start: 2003 Zoster Vaccines (1 of 2) Zoster Vaccines (1 of 2) [facility] Start: 1993 Screening for malignant neoplasm of breast Mammogram [facility] Start: 1975 DTaP/Tdap/Td Vaccines (1 - Tdap) DTaP/Tdap/Td Vaccines (1 - Tdap) [facility] Start: 1971 Hepatitis C screening Hepatitis C Screening [facility] Start: 1955 COVID-19 Vaccine (#1) COVID-19 Vaccine (#1) [facility] Start: 1955 Examination of skin Derm Melanoma Skin Check [facility] Start: 1955 Lipid panel Lipid Panel [facility] Start: 1955 Medicare Annual Wellness Visit Medicare Annual Wellness Visit (AWV) [facility] Start: 1955 Screening for malignant neoplasm of colon [facility] Start: 1955 Screening for osteoporosis Bone Density Scan [facility] Immunizations Immunization Date Immunization Notes Care Provider Poly burrell 03-02-2018 influenza virus vaccine, unspecified formulation Ewdin Wheeler MD Work Phone: [facility] Work Phone: Payers Date Payer Category Payer Unknown [employer] [place] [employer] [place] [id number] 2019-Present [address] [place] [address] [id number] 2019 Unknown [id number] 2018 Unknown [id number] 2017 Private Health Insurance [id number] 1955 Unknown [id number] 1955 Unknown [id number] 1955 Unknown [id number] Social History Date Type Detail Facility Tobacco smoking status IDIS Tobacco smoking consumption unknown [facility] Work Phone: Start: 1955 Sex Assigned At Not on file [facility] Work Phone: Gender identity Not on file [facility] Start: 02-20-2023 End: 03-16-2023 Exposure to SARS-CoV-2 (event) Not sure [facility] History of Present illness Narrative 03-16-2023 Edwin Wheeler MD - 03/16/2023 9:00 AM ESTEdwin Wheeler MD - 03/16/2023 9:00 AM EST Note Date & Type Note Facility 03-16-2023 History of Present illness Narrative Office Visit Note Date: 03/16/2023 Surgeon: Edwin Wheeler MD [facility]: [facility] [place] [id number] [address] Dept: [phone] Dept Referring Provider: Dr. Rogelio Felipe ([facility]) Tanika Young is a 68 y.o. female who presents for the following: MOHS Surgery According to the patient, the lesion has been presnt for approximately 6 months at the time of diagnosis. The lesion is itchy. The lesion has not been treated previously. The patient does not have a pacemaker / defibrillator. The patient does not have a heart valve / joint replacement. The patient is not on blood thinners. The patient does not have a history of hepatitis B or C. The patient does not have a history of HIV. Review of Systems: No other skin or systemic complaints other than what is documented elsewhere in the note. MEDICAL HISTORY: clinically relevant history including significant past medical history, medications and allergies was reviewed and documented in Epic. Objective Well appearing patient in no apparent distress; mood and affect are within normal limits. Vital signs: See record. Noted on the left midline upper forehead Is a 1.3 x 1 cm scar The patient confirmed the identified site. Discussion: The nature of the diagnosis was explained. The lesion is a skin cancer. It has a risk of local growth and distant spread. The condition is associated with sun exposure. Warning signs of non-melanoma skin cancer discussed. Patient was instructed to perform monthly self skin examination. We recommended that the patient have regular full skin exams given an increased risk of subsequent skin cancers. The patient was instructed to use sun protective behaviors including use of broad spectrum sunscreens and sun protective clothing to reduce risk of skin cancers. Risks, benefits, side effects of Mohs surgery were discussed with patient and the patient voiced understanding. It was explained that even though the cure rate of Mohs is very high it is not 100%. Risks of surgery including but not limited to bleeding, infection, numbness, nerve damage, and scar were reviewed. Discussion included wound care requirements, activity restrictions, likely scar outcome and time to heal. After Mohs surgery, the defect may need to be repaired surgically and the scar may be longer than the original lesion. Reconstruction options, risks, and benefits were reviewed including second intention healing, linear repair (4-1 ratio was explained), local flaps, skin grafts, cartilage grafts and interpolation flaps (the need for multiple surgeries was explained). Possible outcomes were reviewed including likely scar appearance, failure of flap survival, infection, bleeding and the need for revision surgery. The pathology was reviewed, the photograph was reviewed, and the referring physician's note was reviewed. Patient elected for Mohs surgery. Images from the original note were not included. Mohs Surgery Operative Note Date of Surgery: 03/16/2023 Surgeon: Edwin Wheeler MD Office Location: [address] [address] Dept: [phone] Dept Referring Provider: Dr. Rogelio Felipe ([facility]) Assessment/Plan Pre-procedure: Obtained informed consent: written from patient The surgical site was identified and confirmed with the patient. Intra-operative: Audible time out called at : 9:11 AM 03/16/23 by: Taylor Packer RN Verified patient name, birthdate, site, specimen bottle label & requisition. The planned procedure(s) was again reviewed with the patient. The risks of bleeding, infection, nerve damage and scarring were reviewed. Written authorization was obtained. The patient identity, surgical site, and planned procedure(s) were verified. The provider acted as both surgeon and pathologist. Basal cell carcinoma (BCC) of skin of other part of face left midline upper forehead Mohs surgery Consent obtained: written [place] Protocol: Procedure explained and questions answered to patient or proxy's satisfaction: Yes Test results available and properly labeled: Yes Pathology report reviewed: Yes External notes reviewed: Yes Photo or diagram used for site identification: Yes Site/side marked: Yes Slide independently reviewed by Mohs surgeon: Yes Immediately prior to procedure a time out was called: Yes Patient identity confirmed: verbally with patient Preparation: Patient was prepped and draped in usual sterile fashion Anticoagulation: Is the patient taking prescription anticoagulant and/or aspirin prescribed/recommended by a physician? No Was the anticoagulation regimen changed prior to Mohs? No Anesthesia: Anesthesia method: local infiltration Local anesthetic: lidocaine 2% WITH epi Procedure Details: Biopsy accession number: OUTSIDE PATH Date of biopsy: 01/24/2023 Pre-Op diagnosis: basal cell carcinoma BCC subtype: nodular Surgery side: left Surgical site (from skin exam): left midline upper forehead Pre-operative length (cm): 1.3 Pre-operative width (cm): 1 Indications for Mohs surgery: anatomic location where tissue conservation is critical Micrographic Surgery Details: Post-operative length (cm): 1.5 Post-operative width (cm): 2 Number of Mohs stages: 2 Stage 1 Comments: The patient was brought into the operating room and placed in the procedure chair in the appropriate position. The area positive by previous biopsy was identified and confirmed with the patient. The area of clinically obvious tumor was debulked using a curette and/or scalpel as needed. An incision was made following the Mohs approach through the skin. The specimen was taken to the lab, divided into 2 piece(s) and appropriately chromacoded and processed. Tumor was seen on the lateral margins as indicated on the on the Mohs map. Basal cell carcinoma. Histologic examination revealed basaloid budding from a hair follicle with peripheral palisading concerning for basal cell carcinoma Tumor features identified on Mohs section: basal carcinoma Depth of invasion: dermis Stage 2 Comments: The area of positivity as noted on the Mohs map in the previous stage was identified and removed using the Mohs technique. The specimen was taken to the lab and appropriately chromacoded and processed in 1 piece(s). Tumor features identified on Mohs section: no tumor identified Depth of defect: subcutaneous fat Patient tolerance of procedure: tolerated well, no immediate complications Reconstruction: Was the defect reconstructed?: No Post-procedure details: sterile dressing applied and wound care instructions given Repair: After a discussion with the patient regarding the options for wound closure, a decision was made to proceed with second intention healing. Dressing F/U: Surgifoam was placed in the wound. A pressure dressing was placed to help stabilize the wound and to minimize the risk of postoperative bleeding. Wound care was discussed, and the patient was given written post-operative wound care instructions. The patient will follow up with Edwin Wheeler MD in 3 weeks and will follow up with their primary sales stock associate as scheduled. documented in this encounter [facility] Work Phone: History of Present illness Narrative 03-02-2023 Edwin Wheeler MD - 03/02/2023 10:00 AM EDT Note Date & Type Note Facility 03-02-2023 History of Present illness Narrative Office Visit Note Date: 03/02/2023 Surgeon: Edwin Wheeler MD Office Location: [address] [address] Dept: [phone] Dept Referring Provider: Rogelio Felipe MD Tanika Young is a 67 y.o. female who presents for the following: Basal Cell Carcinoma on the left of midline upper forehead . The skin cancer was confirmed via biopsy on 01/24/23. According to the patient, the lesion has been present for approximately 6 months at the time of diagnosis. The lesion is itchy. The lesion has not been treated previously. The patient does have a pacemaker / defibrillator. The patient is not on blood thinners. The patient does not have a history of hepatitis B or C. The patient does not have a history of HIV. Review of Systems: No other skin or systemic complaints other than what is documented elsewhere in the note. MEDICAL HISTORY: clinically relevant history including significant past medical history, medications and allergies was reviewed and documented in Epic. Objective Well appearing patient in no apparent distress; mood and affect are within normal limits. Vital signs: See record. Noted on the left of midline upper forehead is a 1.4 x 1.2 cm crusted plaque consistent with healing biopsy site. No photo of the biopsy site was provided but the patient confirmed the identified site as the correct biopsy site. Discussion: The nature of the diagnosis was explained. The lesion is a skin cancer. It has a risk of local growth and distant spread. The condition is associated with sun exposure. Warning signs of non-melanoma skin cancer discussed. Patient was instructed to perform monthly self skin examination. We recommended that the patient have regular full skin exams given an increased risk of subsequent skin cancers. The patient was instructed to use sun protective behaviors including use of broad spectrum sunscreens and sun protective clothing to reduce risk of skin cancers. Risks, benefits, side effects of Mohs surgery were discussed with patient and the patient voiced understanding. It was explained that even though the cure rate of Mohs is very high it is not 100%. Risks of surgery including but not limited to bleeding, infection, numbness, nerve damage, and scar were reviewed. Discussion included wound care requirements, activity restrictions, likely scar outcome and time to heal. After Mohs surgery, the defect may need to be repaired surgically and the scar may be longer than the original lesion. Reconstruction options, risks, and benefits were reviewed including second intention healing, linear repair (4-1 ratio was explained), local flaps, skin grafts, cartilage grafts and interpolation flaps (the need for multiple surgeries was explained). Possible outcomes were reviewed including likely scar appearance, failure of flap survival, infection, bleeding and the need for revision surgery. The patient has a basal cell carcinoma. It was reviewed with the patient that the skin cancer has likely been present for >1 year and will continue to progress without treatment. The pathology was reviewed, the photograph was reviewed, and the referring physician's note was reviewed. Medical Decision Making - moderate Column 1 - chronic illness with progression Column 3 - decision regarding minor surgery with identified risk factors (bleeding, infection, scarring). Moderate risk of morbidity from additional treatment - mohs surgery Patient elected for Mohs surgery and is scheduled for the procedure on 03/16/23. documented in this encounter [facility] Work Phone: Evaluation note Note Date & Type Note Facility Evaluation note Diagnosis Basal cell carcinoma, forehead- Primary documented in this encounter [facility] Work Phone: Evaluation note Note Date & Type Note Facility Evaluation note Diagnosis Basal cell carcinoma (BCC) of skin of other part of face documented in this encounter [facility] Work Phone: Summary Purpose Family History No Family History Records FoundNo Family History Records FoundNo Family History Records FoundNo Family History Records Found Advance Directives No Advanced Directives Records FoundNo Advanced Directives Records FoundNo Advanced Directives Records FoundNo Advanced Directives Records Found Reason for Referral Specialty Diagnoses / Procedures Referred By Contac t Referred To Contact Dermatology Procedures Mohs surgery Edwin Wheeler MD [address] [address] Referral ID Status Reason Start Date Expiration Date V isits Requested Visits Authorized [id number] Pending Review 03/16/2023 03/15/2024 1 1 Additional Source Comments INFORMATION SOURCE (unrecogn ized section and content) DATE CREATED AUTHOR 10/26/2017 [facility] DATE CREATED AUTHOR AUTHOR'S ORGANIZ ATION 09/27/2018 [facility] [place] DATE CREATED AUTHOR AUTHOR'S ORGANIZ ATION 02/07/2019 [facility] DATE CREATED AUTHOR AUTHOR'S ORGANIZ ATION 03/18/2023 [facility] Reason for Visit (unrecogniz ed section and content) Reason Comments Basal Cell Carcinoma Reason Comments MOHS Surgery Specialty Diagnoses / Procedures Referred By Contac t Referred To Contact Dermatology Diagnoses Neoplasm of uncertain behavior of skin [id number] [address] [address] Edwin Wheeler MD [address] [address] Referral ID Status Reason Start Date Expiration Date Visits Requested Visits Authorized [id number] Authorized Specialty Services Required 3 03/03/2024 1 1 FOR RECORDS PERTAINING TO PATIENTS WHO ARE OR HAVE BEEN ENROLLED IN A CHEMICAL DEPENDENCY/SUBSTANCEABUSE PROGRAM, SOME INFORMATION MAY BE OMITTED. This clinical summary was aggregated from multiple sources. Caution should be exercised in using it in the provision of clinical care. This summary normalizes information from multiple sources, and as a consequence, information in this document may materially change the coding, format and clinical context of patient data. In addition, data may be omitted in some cases. CLINICAL DECISIONS SHOULD BE BASED ON THE PRIMARY CLINICAL RECORDS. [employer] provides no warranty or guarantee of the accuracy or completeness of information in this document.
--- NOTE | 2024-02-28 12:56 | HP.PCM.SX_ITS ---
HPI - General General Date of Service: 02/28/24 HPI Narrative DAYSI YOUNG, is a 68 F who presents for excisional right breast biopsy due to focal mild atypia. No changes since office visit Office visit 01/25/24 [facility] HPI: 68-year-old female presents for discussion of pathology results from previous right breast biopsy x 2. Results are below and were discussed with patient. Discussed that would recommend an excisional biopsy of the 8:00 7 cm area due to the focal mild atypia. This was the coil clip which would plan to localize using stereotactic localization. MICROSCOPIC DIAGNOSIS A. Right breast mass at 8o?clock 9 cm, core biopsy: Consistent with intraductal papilloma. Mild fibrocystic changes. Focal intraductal hyperplasia without atypia. See comment. B. Right breast at 8o?clock 7 cm, core biopsy: Fragments of intraductal papilloma. Focal intraductal hyperplasia with focal mild atypia. Fibrocystic change. See comment. AM/mr 01/15/2024 [facility] Medical History Wears glasses Wears dentures Post-menopausal Thyroid disease Arthritis History of renal disease Anemia Injury of back Non-smoker History of pain when walking Hypertension Cardiology follow-up encounter History of rheumatic fever History of basal cell carcinoma of skin Anxiety GERD (gastroesophageal reflux disease) Cardiac murmur Osteoarthritis Fibrocystic breast Home Medications ?Medication ?Instructions ?Recorded ?Last Taken ?Type diphenhydramine HCl 25 mg capsule 25 mg PO QHS PRN Sleep 06/24/22 Unknown History (Benadryl) amlodipine 5 mg tablet 5 mg PO DAILY 06/29/23 02/28/24 History metoprolol succinate 25 mg 25 mg PO QHS 02/21/24 02/27/24 History tablet,extended release 24 hr Allergy/AdvReac Type Severity Reaction Status Date / Time Penicillins (PCN) AdvReac Nausea Verified 02/28/24 11:55 Family History Father Heart disease Mother Heart disease CVA (cerebral vascular accident) Surgical History S/P thyroid biopsy History of thyroid surgery History of esophagogastroduodenoscopy (EGD) History of colonoscopy History of dilatation and curettage History of oral surgery History of partial hysterectomy History of cataract extraction Social History Smoking Status: Never smoker alcohol intake: never substance use type: does not use Vital Signs Vital Signs Vital Signs: 02/28/24 12:15 02/28/24 12:15 02/28/24 12:32 Temperature 98.1 F 98.1 F Temperature Source Temporal Pulse Rate 79 79 Respiratory Rate 17 17 Respiratory Pattern Normal Blood Pressure 157/81 H 157/81 H Blood Pressure Mean 106 Blood Pressure Source Monitor Blood Pressure Position Semi-Fowlers Blood Pressure Location Right Arm Pulse Ox 100 100 Oxygen Delivery Method Room Air Room Air Weight Weight: 176 lb 5.917 oz Body Mass Index (BMI) 26.8 Physical Exam Const oriented x3 and no apparent distress Resp normal respiratory effort Cardio regular rate GI soft to palpation and non-tender Assessment & Plan Assessment/Plan (1) Atypical ductal hyperplasia of right breast: PLAN: Plan Discussed with patient would plan for a right stereotactic breast wire localization excisional biopsy of the 8:00 7 cm from the nipple site. Discussed procedure including but not limited to risk of bleeding, infection, need for further surgery. Discussed with patient that due to the diagnosis of atypical ductal hyperplasia she could be at increased risk for breast cancer if that is still found in the additional sectional biopsy which means patient could qualify for increased screening. Patient notes she is quite claustrophobic and does not think she would be able to do an MRI. Discussed with patient that we will deal with that in the future if we need to and there are other ways for risk reduction/screening if needed.
--- NOTE | 2024-02-28 13:59 | BI_ITS ---
SURGICAL BREAST SPECIMEN RADIOGRAPH CLINICAL: Document presence of tissue clip marker in biopsy specimen. FINDINGS: Specimen shows presence of tissue clip marker. Electronically Signed: Franco Corcoran MD at 10:13 EST , BI/Breast Biopsy Specimen IMPRESSION: undefined
[2024-02-28] MEDS: Clindamycin 900 MG/50 ML BAG 75 MG IV (14:10)
--- NOTE | 2024-02-28 14:34 | OP.PCM_ITS ---
Operative Report (Standard) Operative Information Surgery/Procedure Performed: Stereotactic wire localization right breast exc isional biopsy Surgeon: Salima Rosado Date of Procedure: 02/28/24 Procedure Start Time: 14:18 Procedure Stop Time: 14:51 Pre-Operative Diagnosis: Atypical ductal hyperplasia right breast Post-Operative Diagnosis: Same Select all DRAINS/GRAFTS/IMPLANTS that apply: None Type of Anesthesia: General/Supplemental Special Medications: Clindamycin 900 mg IV x 1 Estimated Blood Loss: < 10 cc Specimen collected: Yes Description of specimen(s) removed: 1. Right breast mass Description of surgery: Patient went to mammography and had stereotactic guided wire localization of the right breast. Localizing the coil clip. 2 view mammography was completed for localization after procedure. Patient was brought to operating placed spinal operating table. Timeout was completed verifying correct patient, procedure, site, positioning, special, prior began procedure. General anesthesia was induced. Patient's right breast was prepped draped in a sterile fashion. A radial incision was planned in such a way as to minimize the amount of dissection to reach the mass. Flaps were raised in the location of the wire confirmed. The wire was delivered into the wound. 2 silk [id number] stay suture was placed around the wire and used for traction. Dissection was then taken down circumferentially with electrocautery, taking care to include the entire localization needle and wide margin of grossly normal tissue. Specimen was sent to mammography for x-ray. Both the coil and the ribbon clip were verified. The specimen and entire localizing wire were removed. The specimen was oriented and sent to radiology with the localization studies. Confirmation was received that the entire target lesion had been resected. The cavity was irrigated. Hemostasis was obtained with electrocautery. The breast incision was closed with interrupted sutures of 3-0 Vicryl and subcuticular sutures of 4-0 Monocryl. A dressing of fluff gauze and supportive bra placed. The patient tolerated procedure well was taken to the postanesthesia care in stable condition. Surgical Findings: Clips verified Film Projector Operator service coordinator: Yes Quality Assurance Lead: Cj Garner Tasks completed by first front ventilator: Opening & closing and Retracting Complications Complications: No
--- NOTE | 2024-02-28 14:35 | BRBX_PTH ---
PATHOLOGY RESULTS PATIENT: DAYSI YOUNG LOC: [facility] U#:[id number] AGE/SX: 68/F ROOM: RE02/28/[address]: Dr. Salima Rosado MD : 1955 BED: DIS: 02/28/2024 SPEC #: [id number] RECD: 02/28/24 14:40 STATUS: MARIANNE REQ #: [id number] MARY: 02/28/24 14:[address]: Salima Rosado DEPT: SURGICAL PATHOLOGY RECD BY: Ruben Obando ENTERED: 02/29/24 06:27 SP TYPE: BREAST BX OTHR DR: Dr. Rashid Walsh MD Tissues: Right breast, NOS Procedures: Surgery Specimen Level IV HEADER OPERATION: Excision, right stereotactic wire location breast biopsy PRE-OP DIAGNOSIS: Atypical ductal hyperplasia of right breast TISSUE SUBMITTED: Right breast mass *long stitch-lateral, short stitch- superior* Ischemic Time: 1 minute Fixation Time: 29 hours MICROSCOPIC DIAGNOSIS Right breast, wire localization excisional biopsy: Focal ductal carcinoma in situ. See cancer summary in the comment section. 03/04/2024 COMMENT BREAST CANCER SUMMARY Procedure - excision with wire localization Specimen laterality - Right Tumor site - 8o'clock, 9cm and 7cm, as per clinical information Tumor size - 0.5 x 0.5cm, measured microscopically Number of blocks with DCIS - 2 Number of blocks examined - 10 Architectural pattern - Cribriform with apocrine freatures Nuclear grade - 1-2 (low to intermediate) Necrosis - not identified Margins: Margins are uninvolved by ductal carcinoma in situ. The tumor is 0.2cm away from the closest anterior margin Regional lymph nodes: No lymph nodes are submitted or found Additional Pathologic Findings - - Fibroadenoma with intraductal hyperplasia without atypia. - Changes consistent with previous biopsy site. - Intraductal hyperplasia with multifocal atypia is also noted mixed with in the area of ductal carcinoma in situ. Ancillary Studies: [id number] ER: positive (variable, 0-22%, moderate intensity) TX: positive (variable, 0-17%, moderate intensity) Nso2rqx: positive (3+) Microcalcifications - Present in the non-neoplastic tissue. Clinical History - Please make reference to previous specimen [id number] right breast mass at 8o'clock, 9cm, core biopsy with diagnosis of focal intraductal hyperplasia without atypia in right breast at 8o'clock, 7cm fragments of intraductal papilloma, intraductal hyperplasia with mild atypia and fibrocystic changes. PATHOLOGIC STAGE: pTis(DCIS) pNx pMx The above summary is in compliance with [employer] [place] [employer] (CAP) Cancer Protocols Checklist and [place] [employer] Committee on Cancer (AJCC), Staging Manual, 8th Ed. Immunohistochemistry ([id number]) supports the above diagnosis. MICROSCOPIC DESCRIPTION Slides are reviewed. GROSS DESCRIPTION Received in fresh and post fixed in formalin is one container labeled with the patient's name and designated Right breast. The specimen consists of a piece of fibroadipose tissue with needle localization measuring 4.0 x 3.0 x 2.0cm. The specimen is inked as follows: anterior - yellow, posterior - black, superior - blue, inferior - green, medial - red and lateral - orange. The specimen is serially sectioned and submitted entirely in ten cassettes from medial to lateral margins. Sections reveal a focal hemorrhagic area close to anterior margin. No obvious mass lesion is identified. The entire specimen is submitted in ten cassettes. Sections will be submitted after additional fixation. DEIDRA 02/29/2024 TC:0 CPT:54684
--- NOTE | 2024-02-28 14:41 | EX.PCM.DISCH ---
Discharge Instructions Diet Discharge Diet: No restrictions Activity Discharge Activity: May Not Drive (for 2-3 days or while taking narcotic pain meds.) May shower in (days): 1 Lifting Restrictions: 10 pounds for 1 week on the right Dressing / Incision Call your doctor if your incision/area has: Continuous Slow Oozing, Sudden Increased Bleeding, Increased Pain/ Swelling and Increased Redness Call your doctor if you observe: Fever of 101 or Higher Suture Line Care: Avoid Pulling/Pushing and Avoid Pinching/Bending Remove Dressing in: 1 day Additional Dressing/Incision Instructions:: Remove bulky dressing tomorrow. May leave op-site dressing for 3-4 days. Okay to remove Steri-Strips from the breast incision in 7 to 10 days. Follow Up Care Please Follow Up With: Salima Rosado MD When: Please call [phone] for an appointment to be seen in 2 week. We will call with pathology results when completed Test Results: Test results from this visit will be discussed in further detail at your follow-up appointment, if applicable. Discharge Plan Admission Attending Provider: Salima Rosado Primary Care Provider: Rashid Walsh Instructions Print Language: Greenlandic Discharge Orders/Prescriptions Prescriptions: New tramadol 50 mg tablet 50 mg PO Q6H PRN (Reason: pain) Qty: 5 0RF Continued amlodipine 5 mg tablet 5 mg PO DAILY Patient Comments: take 1 tablet by mouth every morning for blood pressure diphenhydramine HCl [Benadryl] 25 mg Capsule 25 mg PO QHS PRN (Reason: Sleep) metoprolol succinate 25 mg tablet extended release 24 hr 25 mg PO QHS Referrals / Follow Up: Rashid Walsh MD [Primary Care Provider] - Disposition Disposition (needs filled in before D/C Order can be placed): Home, Self Care
[2024-02-28] MEDS: Bupivacaine Mpf 0.5% 30 ML VIAL (14:52)
--- NOTE | 2024-02-28 15:02 | PCM.POST.ANE ---
Anesthesia: Postop Eval I Current Vital Signs Temperature: 97.4 F Pulse Rate: 76 Blood Pressure: 137/74 Respiratory Rate: 16 Pulse Ox: 96 Oxygen Delivery Method: Room Air Assessment Airway patent: Yes Spontaneous unlabored respirations: Yes Mental status: Awake and Calm nausea: No Vomiting: No Anesthesia Complication: No Fluid Hydration Crystalloid volume administer (ml): 600 Total IV fluid infused: 600 Progress Note Anesthesia document: Postop Eval 1 completed: Yes
--- NOTE | 2024-02-28 17:07 | POSTOPAN2_ITS ---
Anesthesia Postop Eval I Sum Postop Eval Completion status Anesthesia document: Postop Eval 1 completed: Yes Anesthesia Postop Eval I Summary Anesthesia Postop Eval I Summary: Anesthesia Postop Eval I: Assessment Summary Airway patent Yes 02/28/24 15:04 MEDICAL [email or web address] Spontaneous unlabored Yes 02/28/24 15:04 MEDICAL [email or web address].[email or web address] respirations Mental status Awake,Calm 02/28/24 15:04 MEDICAL SUPERINTENDENT.[email or web address] nausea No 02/28/24 15:04 MEDICAL SUPERINTENDENT.[email or web address] Vomiting No 02/28/24 15:04 MEDICAL SUPERINTENDENT.[email or web address] Anesthesia Postop Eval I: Fluid Summary Crystalloid volume administer 600 02/28/24 15:04 MEDICAL [email or web address] (ml) Colloids volume administered ( ml) Blood Product volume administered (ml) Total IV fluid infused 600 02/28/24 15:04 MEDICAL SUPERINTENDENT.[email or web address] Anesthesia Postop Eval I: Summary Notes Anesthesia Complication No 02/28/24 15:04 MEDICAL SUPERINTENDENT.ALLAN Anesthesia Complication Comment: Post-operative progress note Anesthesia: Postop Eval II Evaluation Mental status: Awake and Calm Pain Level: 1 nausea: No Vomiting: No Complications Anesthesia Complication: No
--- NOTE | 2024-02-28 17:07 | PCM.POSTANE2 ---
Anesthesia Postop Eval I Sum Postop Eval Completion status Anesthesia document: Postop Eval 1 completed: Yes Anesthesia Postop Eval I Summary Anesthesia Postop Eval I Summary: Anesthesia Postop Eval I: Assessment Summary Airway patent Yes 02/28/24 15:04 [email or web address] Spontaneous unlabored Yes 02/28/24 15:04 [email or web address] respirations Mental status Awake,Calm 02/28/24 15:04 [email or web address] nausea No 02/28/24 15:04 CHAIR.[email or web address] Vomiting No 02/28/24 15:04 CHAIR.[email or web address] Anesthesia Postop Eval I: Fluid Summary Crystalloid volume administer 600 02/28/24 15:04 [email or web address] (ml) Colloids volume administered ( ml) Blood Product volume administered (ml) Total IV fluid infused 600 02/28/24 15:04 CHAIR.[email or web address] Anesthesia Postop Eval I: Summary Notes Anesthesia Complication No 02/28/24 15:04 CHAIR.ALLAN Anesthesia Complication Comment: Post-operative progress note Anesthesia: Postop Eval II Evaluation Mental status: Awake and Calm Pain Level: 1 nausea: No Vomiting: No Complications Anesthesia Complication: No
== END 2024-02-28 16:17 | disposition home or self-care (01) ==
LOC: SDC 11:53 → AC 11:53
PROVIDERS: PCP Internal Medicine; Referring Provider Surgery; Visit Provider Surgery
PROC: (CPT 19125; principal; 2024-02-28 13:15)
DX: C50.911 Malignant neoplasm of unspecified site of right female breast (principal); N60.91 Unspecified benign mammary dysplasia of right breast; I10 Essential (primary) hypertension; Z79.899 Other long term (current) drug therapy
CPT/HCPCS: 19125; 00400; 19281; 76098; 88305; 88341; 88342; J7120; J2405